=== PATIENT | male | born 1960 | race Caucasian/White ===

== ENCOUNTER 2019-10-04 15:31 | Emergency (ER) | payer OTHER, SELFPAY ==
--- NOTE | ~2019-10-04 | CT_ITS ---
EXAMINATION: CTA chest PE protocol DATE: 10/04/2019 18:39 CDT INDICATION: Chest pain. Shortness of breath. TECHNIQUE: Computed tomographic angiography (CTA) of the chest was performed with 100 mL Omnipaque-35 0 intravenous contrast. The dose-length product was 608.54 mGy-cm. Maximum intensity projection 3D-re constructions of the aorta and other arteries were constructed by the technologist on a separate work station. Automated exposure control and iterative reconstruction technique were employed. COMPARISON: Chest dated 10/04/2019 FINDINGS: The study is technically adequate without evidence for pulmonary embolism. No evidence for aortic aneurysm or dissection. Heart size is normal. No pleural or pericardial effusion. No thoracic lymphadenopathy. No endobronchial lesions. No focal airspace consolidation. No pneumothorax. No acute osseous abnormality. IMPRESSION: 1. No evidence for pulmonary embolism. No acute cardiopulmonary disease. Reviewed, dictated and finalized at location A.
--- NOTE | ~2019-10-04 | XR_ITS ---
EXAMINATION: XR chest 2V 10/04/2019 16:07 INDICATION: Chest pain PROCEDURE: 2 view chest COMPARISON: 07/16/2018 FINDINGS: The lungs are clear. The cardiomediastinal silhouette is within normal limits. There are no pleural effusions. There is no pneumothorax suspected. IMPRESSION: 1: NO ACUTE CARDIOPULMONARY DISEASE. Reviewed, dictated and finalized at location A.
--- NOTE | 2019-10-04 15:35 | ECG_ITS ---
Measurements Intervals [place] Rate: 81 P: 46 [place]: 134 QRS: 21 QRSD: 93 T: 39 QT: 358 QTc: 416 Interpretive Statements SINUS RHYTHM CANNOT RULE OUT SEPTAL INFARCT, AGE INDETERMINATE BASELINE ARTIFACT- I, II ABNORMAL ECG Electronically Signed On 10-04-2019 15:57:33 CDT by Pete Adorno D.O.
[2019-10-04 15:50] VITALS: BP 174/112; PULSE 87; RESP 20; O2SAT 96
[2019-10-04 15:58] VITALS: PULSE 82
[2019-10-04 15:59] VITALS: O2SAT 98
[2019-10-04 16:00] LABS: Basophils Percent Auto 0.5 % (0.2-1.2); Eosinophils Absolute Auto 0.2 K/mm3 (0-0.3); Eosinophils Percent Auto 3.2 % (0-4.4); Hematocrit 40.5 % (42.0-52.0); Hemoglobin 13.9 g/dL (14.0-18.0); Immature Granulocyte Absolute 0.03 K/mm3 (0.00-0.031); Immature Granulocyte Percent A 0.5 % (0-0.5); Lymphocytes Absolute Auto 1.76 K/mm3 (0.9-3.2); Lymphocytes Percent Auto 26.8 % (18.3-44.2); Mean Corpuscular HGB Conc 34.3 g/dl (32-36); Mean Corpuscular Hemoglobin 31.3 pg (26-34); Mean Corpuscular Volume 91.2 fl (80-100); Mean Platelet Volume 9.8 fl (7.4-10.4); Monocytes Absolute Auto 0.6 K/mm3 (0.1-0.6); Neutrophils Absolute Auto 3.9 K/mm3 (1.3-6.7); Platelet Count Result 218 k/mm3 (150-375); Red Blood Count 4.44 M/mm3 (4.6-6.20); Red Cell Distribution Width 12.6 % (11.5-14.5); White Blood Count 6.6 K/mm3 (4.5-10.0)
[2019-10-04 16:10] LABS: INR 0.9; Prothrombin Time 12.2 Seconds (11.1-14.7)
[2019-10-04 16:11] LABS: Partial Thromboplastin Time 26.3 SECONDS (22.3-36.8)
[2019-10-04 16:13] LABS: Blood Urea Nitrogen 18 mg/dL (9-20); Calcium 9.2 mg/dL (8.4-10.2); Carbon Dioxide 28 mmol/L (22-30); Chloride 103 mmol/L (98-107); Estimated CRCL calculation 66 ml/min; Estimated Glomerular Filt Rate 57; Glucose 85 mg/dL (75-110); Potassium 4.2 mmol/L (3.4-5.0); Sodium 135 mmol/L (137-145)
[2019-10-04 16:14] LABS: Alanine Aminotransferase 30 U/L (4-50); Albumin Level 4.4 g/dL (3.5-5.1); Alkaline Phosphatase 37 U/L (38-126); Aspartate Amino Transferase 27 U/L (17-59); Bilirubin,Total 0.6 mg/dL (0.2-1.3); Lipase 204 U/L (23-300)
[2019-10-04] MEDS: KETOROLAC 30 MG/ML VIAL (*BKC) IV PUSH (16:14)
[2019-10-04 16:15] LABS: D Dimer < 0.22 ug/mL (<0.48)
[2019-10-04 16:25] LABS: Troponin I < 0.012 ng/mL (0.000-0.034)
--- NOTE | 2019-10-04 16:55 | ED.CHESTPAIN ---
HPI - Chest Pain General Chief Complaint: Chest Pain Stated Complaint: burning in my chest Time Seen by Provider: 10/04/19 15:38 Source: RN notes reviewed History of Present Illness HPI narrative: Patient presents emergency department from home for chest pain. Patient states has been having intermittent left-sided chest pain for the past 1 month. Patient states the pain is around his nipple and he is tender to palpation around his nipple. He states at times pain radiates into his left shoulder. Patient states that pain is worse when he rolls over onto his side when he is sleeping and when he moves his left arm. He denies any known trauma or injury. Denies any fevers or chills shortness of breath cough abdominal pain nausea vomiting. Patient states he is had no previous work-up. Denies any rashes on his chest Related Data Allergies Allergy/AdvReac Type Severity Reaction Status Date / Time Cat Dander Allergy Intermediate RESPIRATORY Uncoded 10/04/19 16:01 Chicken Feathers Allergy Intermediate RESPIRATORY Uncoded 10/04/19 16:01 Review of Systems Review of Systems: Narrative: Gen.: Denies fevers or chills Eyes: Denies eye pain or visual change ENT: Denies congestion Respiratory: Denies shortness of breath or cough CV: Reports chest pain GI: Denies abdominal pain nausea, emesis or diarrhea Musculoskeletal: Denies back pain or muscle pain Neuro: Denies numbness, tingling, weakness or focal weakness Skin: Denies rash Except as documented, all other systems reviewed and negative PMFSH Past Medical History Medical History (Updated 10/04/19 @ 18:53 by Cameron Escobar DO) Patient denies significant medical history Social History Social History (Updated 10/04/19 @ 16:56 by Cameron Escobar DO) Smoking status: Former smoker Gender identity (if verbalized by the patient): Male Exam Narrative: Exam Narrative: APPEARANCE: No acute distress, nontoxic, resting in bed EYES: EOMI HEENT: Normocephalic, atraumatic, OMM RESPIRATORY: No respiratory distress Clear to auscultation bilaterally with no rhonchi wheezing or rales. Chest: Tender palpation over left anterior chest wall just inferior to the nipple there is no erythema or swelling there is no overlying rash pain increased with movement of the left shoulder CARDIOVASCULAR: Regular rate and rhythm without murmurs rubs or gallops. ABDOMINAL: Soft, nontender, nondistended, no rebound or guarding MUSCULOSKELETAl: Moves all extremities. No clubbing, cyanosis or edema. NEURO: Awake and alert. Following commands, speech normal, no focal deficits SKIN:: Warm, dry. No rashes lesions or abrasions PSYCHIATRIC: Normal affect/mood, Course Course Emergency Course: Patient states pain is improved with Toradol Discussed with patient results of workup and diagnosis. Discussed need for follow-up with primary care, proper use of medication, and reasons to return to the emergency department. Patient understands and agrees to current treatment plan Vital Signs Vital signs: Vital Signs Pulse Rate 87 10/04/19 15:50 Respiratory Rate 20 10/04/19 15:50 Blood Pressure 174/112 H 10/04/19 15:50 Pulse Oximetry 96 10/04/19 15:50 Pulse Rate 82 10/04/19 15:58 Respiratory Rate 20 10/04/19 15:50 Blood Pressure 174/112 H 10/04/19 15:50 Pulse Oximetry 98 10/04/19 15:59 MDM - Chest Pain MDM Narrative Medical decision making narrative: Patient's EKGs and labs are without significant high risk changes. Cardiac risk factors reviewed. Patient is felt likely low risk for ACS and reasonable for further risk stratification testing as an outpatient. No pneumonia aneurysm or PE seen on CTA chest patient is felt to be a reasonable candidate for continued evaluation as an outpatient Lab Data Result diagrams: 10/04/19 15:54 10/04/19 15:54 Labs: Lab Results 10/04/19 10/04/19 10/04/19 Range/Units 15:54 15:54 15:54 WBC 6.6 (4.5-10.0) K/mm3 RBC
[2019-10-04 19:07] LABS: Troponin I < 0.012 ng/mL (0.000-0.034)
[2019-10-04 19:19] VITALS: BP 161/100; PULSE 74; RESP 18; O2SAT 98
== END 2019-10-04 19:45 | disposition home or self-care (01) ==
PROVIDERS: Emergency Provider Emergency Medicine; PCP Family Medicine
DX: R07.89 Other chest pain (principal); Z87.891 Personal history of nicotine dependence; R94.31 Abnormal electrocardiogram [ECG] [EKG]
CPT/HCPCS: 36415; 71046; 71275; 80048; 80076; 83690; 84484; 85025; 85380; 85610; 85730; 93005; 96374; 99284; J1885; Q9967

== ENCOUNTER 2020-07-08 14:59 | Outpatient (CLI) | payer OTHER, SELFPAY ==
[2020-07-09 17:37] LABS: SARS-CoV-2 RNA PCR Negative
== END 2020-07-08 15:00 | disposition home or self-care (01) ==
LOC: ANHCOVIDDT 15:01
PROVIDERS: PCP Family Medicine; Visit Provider Nurse Practitioner Family
DX: R51.9 Headache, unspecified (principal); R11.0 Nausea; Z20.822 Contact with and (suspected) exposure to COVID-19
CPT/HCPCS: C9803; U0003; U0005

== ENCOUNTER 2021-02-11 13:58 | Emergency (ER) | payer OTHER, SELFPAY ==
[2021-02-11] VITALS (18 sets, daily range): BP systolic 141–156; BP diastolic 90–108; PULSE 82–119; RESP 12–21; TEMP 37.7; O2SAT 91–97
--- NOTE | ~2021-02-11 | XR_ITS ---
EXAMINATION: XR chest 2V DATE: 02/11/2021 14:36 INDICATION: Shortness of breath and fever TECHNIQUE: PA and lateral views of the chest are obtained. COMPARISON: 10/04/2019 FINDINGS: There are patchy opacities of the mid and lower lung zones with a more focal airspace opaci ty seen in the right lung base. There is no pleural effusion or pneumothorax. The cardiomediastinal s ilhouette is normal. There is mild thoracic spondylosis. IMPRESSION: 1. Patchy opacities of the mid and lower lung zone and more focal airspace opacity of the right lung base could be infectious/inflammatory. Recommend followup radiographs in 10-14 days after appropriate therapy to evaluate for improvement/resolution. Reviewed, dictated and finalized at location B. IMPRESSION: 1. Patchy opacities of the mid and lower lung zone and more focal airspace opac ity of the right lung base could be infectious/inflammatory. Recommend followup radiographs in 10-14 days after appropriate therapy to evaluate for improvemen t/resolution.
--- NOTE | 2021-02-11 14:21 | ECG_ITS ---
Measurements Intervals [place] Rate: 91 P: 14 OR: 116 QRS: 11 QRSD: 82 T: 48 QT: 316 QTc: 389 Interpretive Statements SINUS RHYTHM WITH SHORT OR INTERVAL BORDERLINE ECG Electronically Signed On 02-11-2021 15:52:11 CDT by Pete Adorno D.O.
--- NOTE | 2021-02-11 14:29 | ED.GENADULT ---
HPI - General Adult General Chief complaint: Weakness Stated complaint: Multiple C/O I think I have COVID Time Seen by Provider: 02/11/21 14:02 Source: patient History of Present Illness HPI narrative: Patient is a 60 y/o male complaining cough, chest discomfort, vomiting and bodyache for 1 week. He states that he coughs up some white phlegm at times. His doctor called in steroids and Z-pack, which has not helped with his symptoms. He also feels sweaty and hot, but did not check his temp. Related Data Allergies Allergy/AdvReac Type Severity Reaction Status Date / Time Cat Dander Allergy Intermediate RESPIRATORY Uncoded 10/04/19 16:01 Chicken Feathers Allergy Intermediate RESPIRATORY Uncoded 10/04/19 16:01 Review of Systems Constitutional: Constitutional: Reports as per HPI, Denies chills, Reports excessive sweating, Denies fever(s), Denies headache(s), Reports lethargy, Reports malaise and Denies weakness Eyes: Eyes: Denies blurry vision ENT: Denies headache(s) and Denies neck pain Cardiovascular: Cardiovascular: Reports chest pain and Reports dyspnea Respiratory: Respiratory: Reports cough and Reports dyspnea Gastrointestinal: Gastrointestinal: Denies abdominal pain, Denies diarrhea, Denies nausea and Denies vomiting Genitourinary: Genitourinary: Denies hematuria and Denies dysuria Musculoskeletal: Musculoskeletal: Denies back pain, Reports myalgias and Denies neck pain Neurologic: Denies headache(s) and Denies weakness PMFSH Past Medical History Medical History Patient denies significant medical history Social History Social History Smoking status: Former smoker Gender identity (if verbalized by the patient): Male Exam Const: General: no acute distress and well developed Orientation/consciousness: oriented to person, oriented to place, oriented to time and patient oriented x3 HENMT: Head: normocephalic Ears: external ears normal General nose exam: Normal external nose present Eyes: General: appearance normal, both eyes and all related structures Conjunctivae: conjunctivae normal Neck: Neck: normal visual inspection and full ROM Chest: Chest palpation & inspection: normal inspection of the chest and no tenderness Resp: Effort & Inspection: normal respiratory effort Auscultation: clear to auscultation bilaterally Cardio: Rate: regular rate Rhythm: regular rhythm GI: GI Palp: No abdominal tenderness and Yes Soft to palpation Skin: General skin exam: normal color and turgor normal Neuro: General: oriented to person, oriented to place, oriented to time and patient oriented x3 Cognition (Neuro): normal cognition Extrem: General: normal to inspection, full ROM and no pedal edema Psych: Appearance: grossly normal Mental Status: mental status grossly normal Affect: normal affect Course Vital Signs Vital signs: Vital Signs Pulse Rate 100 02/11/21 14:07 Respiratory Rate 17 02/11/21 14:07 Blood Pressure 152/100 H 02/11/21 14:07 Pulse Oximetry 95 02/11/21 14:07 Temperature 37.7 C H 02/11/21 14:52 Pulse Rate 83 02/11/21 18:25 Respiratory Rate 16 02/11/21 18:25 Blood Pressure 156/90 H 02/11/21 18:25 Pulse Oximetry 97 02/11/21 18:25 Medical Decision Making Vital Signs Vital Signs: Vital Signs Pulse Rate 100 02/11/21 14:07 Respiratory Rate 17 02/11/21 14:07 Blood Pressure 152/100 H 02/11/21 14:07 Pulse Oximetry 95 02/11/21 14:07 Temperature 37.7 C H 02/11/21 14:52 Pulse Rate 83 02/11/21 18:25 Respiratory Rate 16 02/11/21 18:25 Blood Pressure 156/90 H 02/11/21 18:25 Pulse Oximetry 97 02/11/21 18:25 Lab Data Result diagrams: 02/11/21 14:26 02/11/21 14:26 Labs: Lab Results 02/11/21 02/11/21 02/11/21 Range/Units 14:26 14:26 16:09 WBC 7.1 (4.5-10.0) K/mm3 RBC 5.01 (4.6-6.20) M
[2021-02-11 14:37] LABS: Basophils Percent Auto 0.4 % (0.2-1.2); Hematocrit 44.4 % (42.0-52.0); Hemoglobin 15.6 g/dL (14.0-18.0); Immature Granulocyte Absolute 0.12 K/mm3 (0.00-0.031); Immature Granulocyte Percent A 1.7 % (0-0.5); Lymphocytes Absolute Auto 0.97 K/mm3 (0.9-3.2); Lymphocytes Percent Auto 13.7 % (18.3-44.2); Mean Corpuscular HGB Conc 35.1 g/dl (32-36); Mean Corpuscular Hemoglobin 31.1 pg (26-34); Mean Corpuscular Volume 88.6 fl (80-100); Mean Platelet Volume 9.7 fl (7.4-10.4); Monocytes Absolute Auto 0.6 K/mm3 (0.1-0.6); Monocytes Percent Auto 7.7 % (2.6-8.5); Neutrophils Absolute Auto 5.4 K/mm3 (1.3-6.7); Neutrophils Percent Auto 76.5 % (45.5-73.1); Platelet Count Result 228 k/mm3 (150-375); Red Blood Count 5.01 M/mm3 (4.6-6.20); Red Cell Distribution Width 12.1 % (11.5-14.5); White Blood Count 7.1 K/mm3 (4.5-10.0)
[2021-02-11 14:45] LABS: Alanine Aminotransferase 29 U/L (4-50); Albumin Level 4.6 g/dL (3.5-5.1); Alkaline Phosphatase 45 U/L (38-126); Anion Gap 9 mmol/L (8-16); Aspartate Amino Transferase 49 U/L (17-59); Bilirubin,Total 0.6 mg/dL (0.2-1.3); Blood Urea Nitrogen 18 mg/dL (9-20); Calcium 9.4 mg/dL (8.4-10.2); Carbon Dioxide 24 mmol/L (22-30); Chloride 97 mmol/L (98-107); Estimated CRCL calculation 94 ml/min; Estimated Glomerular Filt Rate > 60; Glucose 102 mg/dL (65-110); Potassium 4.7 mmol/L (3.4-5.0); Sodium 130 mmol/L (137-145)
[2021-02-11 14:56] LABS: Troponin I < 0.012 ng/mL (0.000-0.034)
--- NOTE | 2021-02-11 16:14 | PC.NURSE ---
Rapid COVID sent to lab. Called lab to inform.
[2021-02-11 16:46] LABS: EDCOVIDSCREEN Positive (Negative)
[2021-02-11] MEDS: SODIUM CHLORIDE 0.9% IV 1,000 ML 999 ML IV CONT (17:42)
[2021-02-11 17:55] LABS: Troponin I < 0.012 ng/mL (0.000-0.034)
== END 2021-02-11 18:26 | disposition home or self-care (01) ==
PROVIDERS: Emergency Provider Emergency Medicine; PCP Family Medicine
DX: U07.1 COVID-19 (principal); Z87.891 Personal history of nicotine dependence; R94.31 Abnormal electrocardiogram [ECG] [EKG]; R91.8 Other nonspecific abnormal finding of lung field
CPT/HCPCS: 36415; 71046; 80053; 84484; 85025; 87426; 93005; 96360; 99284; C9803; J7030

== ENCOUNTER 2021-02-18 11:28 | Emergency (ER) | payer OTHER, SELFPAY ==
[2021-02-18 11:40] VITALS: BP 152/105; PULSE 81; RESP 20; TEMP 36.2; O2SAT 96
--- NOTE | 2021-02-18 13:45 | ED.GENADULT ---
HPI - General Adult General Chief complaint: Skin/Abscess/Foreign Body Stated complaint: RASH ON BACK Time Seen by Provider: 02/18/21 11:50 Source: patient Mode of arrival: ambulatory Limitations: no limitations History of Present Illness HPI narrative: Patient presents with chief complaint of a rash noted to his back over the past 4 days. Patient was diagnosed on 02-11-21 with Covid. Patient states that he has been laying around a lot on his back but wanted to make sure that he did not have shingles as his [id number] was diagnosed.He states the rash is not painful but pruritic. He reports that he has had a cough fatigue. He denies chest pain or shortness of breath. Patient states that the cough is very irritating. He denies any other symptoms or concerns. Related Data Allergies Allergy/AdvReac Type Severity Reaction Status Date / Time Cat Dander Allergy Intermediate RESPIRATORY Uncoded 02/18/21 11:54 Chicken Feathers Allergy Intermediate RESPIRATORY Uncoded 02/18/21 11:54 Review of Systems Review of Systems: CONSTITUTIONAL: Denies fever, chills, or sweats. EYES: Denies visual changes, redness, or discharge. ENT: Denies rhinorrhea, congestion, sore throat, or otalgia. CARDIOVASCULAR: Denies chest pain, palpitations, or edema. RESPIRATORY: Reports cough denies dyspnea. GASTROINTESTINAL: Denies abdominal pain, nausea, vomiting, or diarrhea. GENITOURINARY: Denies dysuria or hematuria. SKIN: Reports rash denies itching. MUSCULOSKELETAL: Denies back pain, joint pain, or myalgia. NEUROLOGIC: Denies headache, numbness, dizziness, or weakness. PSYCHIATRIC: Denies anxiety or depression. PMFSH Past Medical History Medical History Patient denies significant medical history Social History Social History Smoking status: Former smoker Gender identity (if verbalized by the patient): Male Exam Narrative: GENERAL: Well-appearing, well-nourished, and in no acute distress. HEAD: Normocephalic, atraumatic. EYES: PERRLA and EOMI. NECK: Supple. No adenopathy or masses. Range of motion intact. CHEST: Clear to auscultation. No respiratory distress. No wheezes rales or rhonchi HEART: Regular rate and rhythm. EXTREMITIES: Normal range of motion. No edema. SKIN: There is a mild maculopapular rash on patient's back. Does not follow a dermatomal distribution is not shingles appearing. No signs of infection.warm, dry, no rash. NEURO: No focal deficits. Alert and oriented x3. PSYCH: Normal mood and affect. Course Vital Signs Vital signs: Vital Signs Temperature 97.2 F L 02/18/21 11:40 Pulse Rate 81 02/18/21 11:40 Respiratory Rate 20 02/18/21 11:40 Blood Pressure 152/105 H 02/18/21 11:40 Pulse Oximetry 96 02/18/21 11:40 Temperature 97.2 F L 02/18/21 11:40 Pulse Rate 81 02/18/21 11:40 Respiratory Rate 20 02/18/21 11:40 Blood Pressure 152/105 H 02/18/21 11:40 Pulse Oximetry 96 02/18/21 11:40 Medical Decision Making Vital Signs Vital Signs: Vital Signs Temperature 97.2 F L 02/18/21 11:40 Pulse Rate 81 02/18/21 11:40 Respiratory Rate 20 02/18/21 11:40 Blood Pressure 152/105 H 02/18/21 11:40 Pulse Oximetry 96 02/18/21 11:40 Temperature 97.2 F L 02/18/21 11:40 Pulse Rate 81 02/18/21 11:40 Respiratory Rate 20 02/18/21 11:40 Blood Pressure 152/105 H 02/18/21 11:40 Pulse Oximetry 96 02/18/21 11:40 Discharge Plan Discharge Clinical Impression: COVID-19 virus infection Patient Disposition: Home, Self-Care Condition: Stable Instructions: Antibiotic Form, COVID-19 (Coronavirus Disease 2019) (ED) Additional Instructions: Quarantine as instructed by the health department. You are generally considered contagious for 10 days as long as you are symptoms are improving and you are not febrile. Take Tessalon Perles as directed for cough. Your rash appears
[2021-02-18 14:00] VITALS: BP 155/94; PULSE 80; RESP 20; TEMP 36.3; O2SAT 97
== END 2021-02-18 14:18 | disposition home or self-care (01) ==
PROVIDERS: Emergency Provider Emergency Medicine; PCP Family Medicine
DX: U07.1 COVID-19 (principal); Z87.891 Personal history of nicotine dependence
CPT/HCPCS: 99283

== ENCOUNTER 2021-03-09 15:26 | Outpatient (CLI) | payer OTHER, SELFPAY ==
--- NOTE | ~2021-03-09 | XR_ITS ---
XR chest 2V DATE: 03/09/2021 15:45 INDICATION: Cough TECHNIQUE: PA and lateral views COMPARISON: 02/21/2021 2 view chest 10/03/[address] pulmonary scan FINDINGS: There are scattered patchy infiltrates in the left and right mid and lower lung zones, not present on 10/04/2019, relatively unchanged since 02/21/2021. Normal heart size. No hilar or mediastinal enlargement. No pleural effusion or pulmonary vascular con gestion or pneumothorax. IMPRESSION: Persistent scattered patchy bilateral mild mid and lower lung zone infiltrates Reviewed, dictated and finalized at location A.
== END 2021-03-09 15:27 | disposition home or self-care (01) ==
PROVIDERS: PCP Family Medicine; Visit Provider Family Medicine
DX: U07.1 COVID-19 (principal); J40 Bronchitis, not specified as acute or chronic
CPT/HCPCS: 71046

== ENCOUNTER 2022-04-24 14:19 | Observation (INO) | payer OTHER, SELFPAY ==
[2022-04-24] VITALS (35 sets, daily range): BP systolic 162–205; BP diastolic 83–111; PULSE 66–85; RESP 10–20; TEMP 36.6; O2SAT 94–100; BMI 35.4
--- NOTE | ~2022-04-24 | MR_ITS ---
EXAMINATION: MR thoracic spine wo/w con DATE: 04/25/2022 12:50 INDICATION: Pain and tingling in the arms. TECHNIQUE: Magnetic resonance imaging (MRI) of the thoracic spine was performed without and with 20 m L MultiHance intravenous contrast. COMPARISON: None FINDINGS: There is 15 degrees levoscoliosis of cervicothoracic spine. Vertebral body heights and inte rvertebral disc heights are normal. There is multilevel mild facet joint osteoarthritis. At T8-T9, th ere is a left central protrusion. No central canal stenosis. There is mild left neural foraminal sten osis at T11-T12. The spinal cord signal intensity is normal and thoracic spine. IMPRESSION: 1. Mild thoracic spondylosis. 2. Cervicothoracic levoscoliosis. Reviewed, dictated and finalized at location A. RIAL HANDLING SUPERVISOR
--- NOTE | ~2022-04-24 | CT_ITS ---
EXAMINATION: CT brain wo con DATE: 04/24/2022 17:32 INDICATION: paresthesias, hypertension . TECHNIQUE: Computed tomography (CT) of the head was performed without intravenous contrast. The mA wa s adjusted according to patient size. Iterative reconstruction technique was employed. The dose-lengt h product was 605.33 mGy-cm. COMPARISON: None FINDINGS: No acute intracranial hemorrhage or extra-axial fluid collection. No hydrocephalus, mass, or herniation. No acute ischemic infarct. Unremarkable dural venous sinus attenuation. No acute osseous abnormality. The aerated spaces are clear. Mild atrophy and moderate chronic white matter change. Mild atherosclerotic intracranial calcificatio n. IMPRESSION: No acute intracranial process. Reviewed, dictated and finalized at location K. FIC SIGNAL REPAIRER
--- NOTE | ~2022-04-24 | XR_ITS ---
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 RESULT: Lines, tubes, and devices: None. Lungs and pleura: Clear. Chronic left posterior costophrenic angle blunting. Cardiomediastinal silhouette: Stable. Other: No acute osseous or upper abdominal finding. IMPRESSION: No acute cardiopulmonary process. Reviewed, dictated and finalized at location K. E CRUSHER OPERATOR
--- NOTE | ~2022-04-24 | MR_ITS ---
EXAMINATION: MR cervical spine wo/w con DATE: 04/25/2022 12:50 INDICATION: Pain and tingling in the arms. TECHNIQUE: Magnetic resonance imaging (MRI) of the cervical spine was performed without and with 20 m L MultiHance intravenous contrast. COMPARISON: None FINDINGS: There is 14 degrees levoscoliosis of cervicothoracic spine. There is kyphosis of cervical s pine. Vertebral body heights are normal. There is mildly decreased disc height at C4-C5 and C6-C7. At C4-C5. There is increased T2-weighted signal intensity in the spinal cord, consistent with myelomala edilson. The following disc levels are specifically discussed: C2-C3: The disc does not extend beyond the endplate margin. There is mild right and moderate left unc overtebral joint osteoarthritis. There is mild bilateral facet joint osteoarthritis. There is mild le ft neural foraminal stenosis. There is no central canal stenosis. C3-C4: The disc is bulging. There is mild bilateral uncovertebral joint osteoarthritis. There is lilia re right and mild left facet joint osteoarthritis. There is moderate right neural foraminal stenosis. There is mild central canal stenosis. C4-C5: The disc is bulging with superimposed right central extrusion. There is severe bilateral uncov ertebral joint osteoarthritis. There is mild bilateral facet joint osteoarthritis. There is moderate bilateral neural foraminal stenosis. There is severe central canal stenosis with ventral and dorsal i ndentation of the spinal cord. C5-C6: The disc is bulging with superimposed central extrusion. There is severe bilateral uncovertebr al joint osteoarthritis. There is mild right facet joint osteoarthritis. There is mild bilateral neur al foraminal stenosis. There is moderate central canal stenosis with ventral and dorsal indentation o f the spinal cord. C6-C7: There is a left central and foraminal zone extrusion. There is severe bilateral uncovertebral joint osteoarthritis. There is no facet joint osteoarthritis. There is mild right and moderate left n eural foraminal stenosis. There is mild central canal stenosis with ventral indentation of the spinal cord. C7-T1: The disc does not extend beyond the endplate margin. There is no uncovertebral joint osteoarth ritis. There is severe right and moderate left facet joint osteoarthritis. There is mild right neural foraminal stenosis. There is no central canal stenosis. IMPRESSION: 1. Myelomalacia at C4-C5. 2. Severe cervical spondylosis. 3. Cervicothoracic levoscoliosis. Reviewed, dictated and finalized at location A. RAL JAVA DEVELOPER
--- NOTE | ~2022-04-24 | CT_ITS ---
EXAMINATION: CT cervical spine wo con DATE: 04/24/2022 19:33 INDICATION: numbness and tingling TECHNIQUE: Computed tomography (CT) of the cervical spine was performed without intravenous contrast. Automated exposure control and iterative reconstruction technique were employed. The dose-length pro duct was 441.01 mGy-cm. COMPARISON: None FINDINGS: Vertebral Body Alignment: Intact. Reversed lordosis, centered at C5 Craniocervical and atlantoaxial alignment: Mild degenerative change at the atlantodental interval. Pr ominent posterior arch of C1, with moderate degenerative changes between it and the spinous process o f C2. Alignment intact. Osseous structures/fracture: No evidence of a lytic or blastic process in the visualized spine. No e vidence of acute fracture. Partial opacification of left mastoid air cells. Cervical soft tissues: The paraspinal soft tissues planes are maintained. Degenerative changes: Multilevel severe degenerative disc disease in the mid and lower cervical spine . Multilevel severe central canal narrowing. Multilevel severe bilateral neural foraminal narrowing. Multilevel facet arthropathy. IMPRESSION: No acute fracture or traumatic malalignment in the cervical spine. Multilevel severe bilateral neural foraminal narrowing and central canal narrowing secondary to degenerative changes. Left mastoid effu jordan. Reviewed, dictated and finalized at location K. ROLL CATCHER IMPRESSION: No acute fracture or traumatic malalignment in the cervical spine. Multilevel s evere bilateral neural foraminal narrowing and central canal narrowing secondar y to degenerative changes. Left mastoid effusion.
--- NOTE | ~2022-04-24 | MR_ITS ---
EXAMINATION: MR brain/brain stem wo/w con DATE: 04/25/2022 12:51 INDICATION: Numbness to face and arm. TECHNIQUE: Magnetic resonance imaging (MRI) of the brain and brainstem was performed without and with 20 mL MultiHance intravenous contrast. COMPARISON: Head CT 04/24/2022 FINDINGS: There are scattered areas of nonspecific increased T2-weighted signal intensity in the cere bral white matter and jacobo. There is no intracranial hemorrhage, acute infarction, or abnormal intrac ranial mass lesion. The ventricles are normal in size. The cisternal segments of the trigeminal nerve s are normal. No vascular loop compression. There is mild mucosal thickening in the ethmoid sinuses. The orbits are normal. There is a left mastoid effusion. IMPRESSION: 1. Moderate nonspecific cerebral white matter disease and pontine disease, which likely represents ch ronic small vessel ischemic disease. Reviewed, dictated and finalized at location A. OCOPIER TECHNICIAN IMPRESSION: 1. Moderate nonspecific cerebral white matter disease and pontine disease, whic h likely represents chronic small vessel ischemic disease.
--- NOTE | 2022-04-24 14:20 | ECG_ITS ---
Measurements Intervals [place] Rate: 73 P: -53 MS: 123 QRS: -59 QRSD: 91 T: 210 QT: 355 QTc: 393 Interpretive Statements SINUS OR ECTOPIC ATRIAL RHYTHM ANTEROSEPTAL INFARCT, AGE INDETERMINATE INFERIOR INFARCT, AGE INDETERMINATE BORDERLINE ST-T WAVE ABNORMALITY- HIGH LATERAL LEADS ABNORMAL ECG COMPARED TO ECG 02/11/2021 14:49:00 MYOCARDIAL INFARCT FINDING NOW PRESENT Electronically Signed On 04-24-2022 17:03:20 [employer]URE [employer]AMES INSPECTOR by Pete Adorno D.O.
[2022-04-24 14:57] LABS: Basophils Absolute Auto 0.1 K/mm3 (0.0-0.1); Basophils Percent Auto 0.8 % (0.2-1.2); Eosinophils Absolute Auto 0.1 K/mm3 (0-0.3); Eosinophils Percent Auto 2.3 % (0-4.4); Hematocrit 40.7 % (42.0-52.0); Immature Granulocyte Absolute 0.02 K/mm3 (0.00-0.031); Immature Granulocyte Percent A 0.3 % (0-0.5); Lymphocytes Absolute Auto 1.63 K/mm3 (0.9-3.2); Lymphocytes Percent Auto 27.3 % (18.3-44.2); Mean Corpuscular HGB Conc 34.4 g/dl (32-36); Mean Corpuscular Hemoglobin 31.5 pg (26-34); Mean Corpuscular Volume 91.5 fl (80-100); Mean Platelet Volume 10.2 fl (7.4-10.4); Monocytes Absolute Auto 0.5 K/mm3 (0.1-0.6); Monocytes Percent Auto 8.1 % (2.6-8.5); Neutrophils Absolute Auto 3.6 K/mm3 (1.3-6.7); Neutrophils Percent Auto 61.2 % (45.5-73.1); Platelet Count Result 226 k/mm3 (150-375); Red Blood Count 4.45 M/mm3 (4.6-6.20); Red Cell Distribution Width 12.3 % (11.5-14.5)
[2022-04-24 15:10] LABS: Alanine Aminotransferase 28 U/L (6-50); Albumin Level 4.6 g/dL (3.5-5.1); Alkaline Phosphatase 44 U/L (38-126); Anion Gap 9 mmol/L (8-16); Aspartate Amino Transferase 26 U/L (17-59); Bilirubin,Total 0.7 mg/dL (0.2-1.3); Blood Urea Nitrogen 15 mg/dL (9-20); Carbon Dioxide 24 mmol/L (22-30); Chloride 105 mmol/L (98-107); Estimated CRCL calculation 94 ml/min; Estimated Glomerular Filt Rate > 60; Glucose 109 mg/dL (65-110); Lipase 83 U/L (23-300); Potassium 4.3 mmol/L (3.4-5.0); Sodium 138 mmol/L (137-145)
[2022-04-24 15:20] LABS: Troponin I < 0.012 ng/mL (0.000-0.034)
[2022-04-24 15:25] LABS: Partial Thromboplastin Time 26.5 SECONDS (22.3-36.8)
[2022-04-24 15:34] LABS: INR 1.1; Prothrombin Time 13.8 Seconds (11.1-14.7)
--- NOTE | 2022-04-24 15:55 | ED.CHESTPAIN ---
HPI - Chest Pain General Chief Complaint: Chest Pain <NELY Villa Last Filed: 04/24/22 18:48> Stated Complaint: chest pain <NELY Villa Last Filed: 04/24/22 18:48> Time Seen by Provider: 04/24/22 15:15 <NELY Villa Last Filed: 04/24/22 18:48> Source: patient <NELY Villa Last Filed: 04/24/22 18:48> Mode of arrival: ambulatory <NELY Villa Last Filed: 04/24/22 18:48> Limitations: no limitations <NELY Villa Last Filed: 04/24/22 18:48> History of Present Illness HPI narrative: This is a 61 year old male that presents to the ER for cold symptoms ongoing over the last couple of weeks. Reports cough, congestion, chest tightness. Reports he has been using his inhaler with little relief. Reports tingling in his chest. Reports some shortness of breath. Denies fever or lower extremity edema. <NELY Villa Last Filed: 04/24/22 18:48> Related Data Home Medications: Home Medications Medication Instructions Recorded Confirmed acetaminophen 500 mg tablet 1,000 mg PO Q6H PRN Mild Pain 04/24/22 04/24/22 (Tylenol Extra Strength) (Scale Score 1-4) albuterol sulfate 90 mcg/actuation 2 puff inhalation Q4-6H PRN 04/24/22 04/24/22 aerosol inhaler Shortness Of Breath budesonide 160 mcg-glycopyr 9 2 inh inhalation BID 04/24/22 04/24/22 mcg-formot 4.8 mcg/actuation HFA inhaler (Breztri Aerosphere) <NELY Villa Last Filed: 04/24/22 18:48> Allergies/Adverse Reactions: Allergies Allergy/AdvReac Type Severity Reaction Status Date / Time Cat Dander Allergy Intermediate RESPIRATORY Uncoded 02/18/21 11:54 Chicken Feathers Allergy Intermediate RESPIRATORY Uncoded 02/18/21 11:54 <NELY Villa Filed: 04/24/22 18:48> Review of Systems Review of Systems: CONSTITUTIONAL: Denies fever ENT: Reports congestion CARDIOVASCULAR: Reports chest pain. Denies edema. RESPIRATORY: Reports cough and dyspnea. <Myranda Donahue PA-C - Last Filed: 04/24/22 18:48> All systems reviewed & are unremarkable except as noted in HPI and below <Myranda Donahue PA-C - Last Filed: 04/24/22 18:48> [facility] Past Medical History Medical History: Medical History (Updated 04/24/22 @ 20:46 by Steph Patricia NP) COVID-19 virus infection Obesity Sciatica <Myranda Donahue PA-C - Last Filed: 04/24/22 18:48> Surgical History Surgical History: Surgical History No pertinent past surgical history <Myranda Donahue PA-C - Last Filed: 04/24/22 18:48> Family History Family History: Family History Father Hypertension Mother Dementia <Myranda Donahue PA-C - Last Filed: 04/24/22 18:48> Social History Social History: Social History (Updated 04/24/22 @ 20:38 by Steph Patricia NP) Social History: The patient lives home alone and is . 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 Patient stated he had been drinking heavily for while but has not drank any alcohol in 1 week. He is a former smoker. He does not use any illicit drugs. He does not have anybody that is a durable power family law attorney for healthcare. -code status full code Smoking packs per day: 2 Smoking cigarettes per day: 40.0 Years smoked: 30 Smoking pack-years: 60.00 Smoking status: Former smoker Tobacco type: cigarettes Alcohol intake: current Drinks per week: 18 Substance use: current Substance use type: marijuana Last use: 04/23/22 Lack of Transportation: No Lack of Food: Never True Current Housing: I Do Not Have Housing Concerned About Future Housing: No Difficulty Paying Gas/Electric Bills: No Difficulty Paying for Meds: No Currently Unemployed: No Education: Grade School Difficulty w/ Childcare or Family Care: No Gender identity (i
[2022-04-24] MEDS: ALBUTEROL SULFATE NEB 2.5 MG/3 ML INH 5 MG INHALATION (16:07)
[2022-04-24] MEDS: IPRATROPIUM BR 0.02% INH SOLN 0.5 MG/2.5 ML VIAL INHALATION (16:07)
[2022-04-24 16:35] LABS: Influenza A QL RT-PCR Negative (Negative); Influenza B QL RT-PCR Negative (Negative); RSV RNA, RT-PCR Negative (Negative); SARS-CoV-2 RNA PCR Negative
[2022-04-24 18:10] LABS: Troponin I < 0.012 ng/mL (0.000-0.034)
[2022-04-24] MEDS: hydrALAZINE HCL 20 MG/ML VIAL 10 MG IV PUSH ×2 (18:11→22:41)
--- NOTE | 2022-04-24 19:05 | PM.IMHP ---
H&P: HPI History of Present Illness Date/Time: 04/24/22 19:05 Chief Complaint: Chest pain Narrative: This is a 61-year-old male patient who has multiple complaints. The patient complains of neck pain and pain to the left side of his face the radiates into his ear down to the left side. Down to his left arm. He has pain across his chest. He has numbness and tingling around his chest on both sides and his left arm. He also has numbness and tingling to his lips. The patient recently was treated for upper respiratory infection with azithromycin and an inhaler. He has had shortness of breath and chest discomfort. The patient denies taking anything [id number] for this discomfort. He denies taking any NSAIDs or any cold medicine. Cervical spine CT was read as no acute fracture traumatic malalignment in the cervical spine multilevel severe bilateral neural foraminal narrowing and central canal narrowing secondary to degenerative changes left mastoid effusion. Head CT shows no acute intracranial process. Chest x-ray shows no acute cardiopulmonary disease. The patient was given a nebulizer treatment and Apresoline in the emergency room. His blood pressure was 197/111 he was given the hydralazine and is blood pressure came down to 174/96 and then increased again so I ordered Lopressor 5 mg IV push x1. It looks like he has had elevated blood pressure in the past with visits here as far back as 2019. Patient's troponins are negative x2. Influenza a B RSV and COVID are all negative. The patient is being admitted to observation status on the date of service of 04/24/2022. Review of Systems Review of Systems: See HPI All systems reviewed & are unremarkable except as noted in HPI and below Constitutional: Constitutional: Reports as per HPI and Reports no additional constitutional complaints Eyes: Eyes: Reports as per HPI and Reports no additional eye complaints ENT: Reports system reviewed and no additional complaints, except as documented and Reports Normal hearing present Cardiovascular: Cardiovascular: Reports no additional cardiovascular complaints Respiratory: Respiratory: Reports no additional respiratory complaints and Reports no additional respiratory complaints Gastrointestinal: Gastrointestinal: Reports as per HPI and Reports no additional gastrointestinal complaints Musculoskeletal: Musculoskeletal: Reports no additional musculoskeletal complaints Integumentary/Breasts: Skin/Breast: Reports system reviewed and no additional complaints, except as docu and Reports as per HPI Neurologic: Reports system reviewed and no additional complaints, except as documented, Reports as per HPI and Reports Normal hearing present Psychiatric: Psychiatric: Reports no additional psychiatric complaints and Reports as per HPI Endocrine: Endocrine: Reports no additional endocrine complaints Hematologic/Lymphatic: Hematologic/Lymphatic: Reports no additional hematologic/lymphatic complaints Allergic/Immunologic: Allergic/Immunologic: Reports no additional allergic/immunologic complaints PMFSH Past Medical History Medical History (Updated 04/24/22 @ 21:02 by Steph Patricia NP) COVID-19 virus infection Obesity Sciatica Surgical History Surgical History No pertinent past surgical history Family History Family History Father Hypertension Mother Dementia Social History Social History (Updated 04/24/22 @ 20:38 by Steph Patricia NP) Social History: The patient lives home alone and is . 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 Patient stated he had been drinking heavily for while but has not drank any alcohol in 1 week. He is a former smoker. He does not use any illicit drugs. He does not have anybody that is a durable power business attorney for healthcare. -code status full code Smoking
--- NOTE | 2022-04-24 19:17 | PC.NURSE ---
pt states is feeling some better. states fells less numbness on the left side of his face.
--- NOTE | 2022-04-24 19:45 | ADMGEN ---
This patient, Robert Tafoya, was admitted to IMU Room 212-01. Patient/family oriented to hospital policies and general routines including ID bracelet, bed and alarms, visiting hours, pain management, procedures, bathroom and other care routines, personal items, smoking policy, room service/diet, and visiting hours. Information on how to activate the Rapid Response Team has been discussed. Patient/Family are encouraged to report perceived risks to care and to ask questions if they do not understand what they are told or what they should do.
--- NOTE | 2022-04-24 19:55 | PC.NURSE ---
Pt reports taking 3 puffs of albuterol inhaler on arrival to his room in IMU. Pt educated on not taking any medication outside of what is provided in the hospital while admitted in the hospital. Will continue to monitor.
[2022-04-24] MEDS: METOPROLOL TARTRATE INJ 5 MG/5 ML VIAL IV PUSH (20:12)
[2022-04-24 20:57] LABS: Troponin I < 0.012 ng/mL (0.000-0.034)
[2022-04-24] MEDS: METOPROLOL TARTRATE 25 MG TABLET PO (22:42)
[2022-04-25] VITALS (12 sets, daily range): BP systolic 115–162; BP diastolic 67–90; PULSE 58–75; RESP 18–20; TEMP 36.3–37.1; O2SAT 97–100
--- NOTE | 2022-04-25 | ECHO_ITS ---
Patient Info Name: Robert Taofya Age: 61 years : 1960 Gender: Male Ht: 69 in Wt: 238 lbs BSA: 2.33 m2 HR: 61 bpm BP: 162 / 90 mmHg Heart Rhythm: Sinus Rhythm Technical Quality: Fair Exam Date: 04/25/2022 8:18 AM Exam Location: [facility] Patient Status: Outpatient Admit Date: 04/24/2022 Staff Ordering Physician: Steph Patricia NP Lead Process Engineer: Ngoc Montero RDCS Attending Provider: Peng Roman MD Referring Physician: Harshad ANTONIO; Exam Type: CA echo doppler color flow Study Info Indications R07.9 - Chest pain, unspecified Complete two-dimensional, color flow and Doppler transthoracic echocardiogram is performed. Summary 1. Complete two-dimensional, color flow and Doppler transthoracic echocardiogram is performed. 2. Normal left ventricular size and systolic function without ischemic wall motion abnormality. 3. No Doppler evidence of valvular disease. Left Ventricle Left ventricular chamber dimension is normal. Left ventricular systolic function is normal, estimated at 65-70%. The left ventricular diastolic function is normal. Right Ventricle Right ventricular chamber dimension is normal. Left Atria Left atrial chamber dimension is normal. Right Atria Right atrial chamber dimension is normal. Aortic Valve The aortic valve is normal. Pulmonic Valve The pulmonic valve is normal. Mitral Valve The mitral valve has normal leaflets. Tricuspid Valve The tricuspid valve leaflets are normal. Pericardium/Pleural The pericardium appears normal. Aorta The aortic root size at the sinus of Valsalva is normal. Left Ventricular Outflow Tract Name Value Normal LVOT 2D LVOT Diameter 2.0 cm LVOT Doppler LVOT Peak Gradient 5 mmHg LVOT Mean Gradient 3 mmHg LVOT VTI 22 cm LVOT VTI/AV VTI Ratio 0.5 LVOT Stroke Volume 69 ml LVOT CO 4.9 l/min LVOT CI 2.1 l/min/m2 Pulmonic Valve Name Value Normal RVOT Doppler RVOT Peak Gradient 4 mmHg PV Doppler PV Peak Gradient 9 mmHg Mitral Valve Name Value Normal MV Doppler MV Decel [place] 681 cm/s2 MV PHT 58 ms MV Area (PHT) 3.8 cm2 4.0-5.0 MV Diastolic Function
[2022-04-25] MEDS: AMPICILLIN SULB 3 GM/NS 100 ML 3 GM/100 ML VIAL IVPB ×2 (00:58→04:18)
[2022-04-25] MEDS: ACETAMINOPHEN 500 MG TABLET 1000 MG PO ×3 (01:24→15:44)
[2022-04-25 04:37] LABS: Basophils Percent Auto 0.6 % (0.2-1.2); Eosinophils Absolute Auto 0.2 K/mm3 (0-0.3); Eosinophils Percent Auto 3.4 % (0-4.4); Hematocrit 41.7 % (42.0-52.0); Immature Granulocyte Absolute 0.03 K/mm3 (0.00-0.031); Immature Granulocyte Percent A 0.4 % (0-0.5); Immature Platelet Fraction Pct 5.2 % (0.9-11.2); Lymphocytes Absolute Auto 1.89 K/mm3 (0.9-3.2); Lymphocytes Percent Auto 26.6 % (18.3-44.2); Mean Corpuscular HGB Conc 33.6 g/dl (32-36); Mean Corpuscular Hemoglobin 30.8 pg (26-34); Mean Corpuscular Volume 91.6 fl (80-100); Mean Platelet Volume 10.1 fl (7.4-10.4); Monocytes Absolute Auto 0.5 K/mm3 (0.1-0.6); Monocytes Percent Auto 7.6 % (2.6-8.5); Neutrophils Absolute Auto 4.4 K/mm3 (1.3-6.7); Neutrophils Percent Auto 61.4 % (45.5-73.1); Platelet Count Result 237 k/mm3 (150-375); Red Blood Count 4.55 M/mm3 (4.6-6.20); Red Cell Distribution Width 12.3 % (11.5-14.5); White Blood Count 7.1 K/mm3 (4.5-10.0)
[2022-04-25 04:42] LABS: Lactic Acid Reflex 0.9 mmol/L (0.7-2.0)
[2022-04-25 04:45] LABS: Alanine Aminotransferase 25 U/L (6-50); Albumin Level 4.3 g/dL (3.5-5.1); Alkaline Phosphatase 37 U/L (38-126); Anion Gap 6 mmol/L (8-16); Aspartate Amino Transferase 26 U/L (17-59); Bilirubin,Total 0.7 mg/dL (0.2-1.3); Blood Urea Nitrogen 14 mg/dL (9-20); Carbon Dioxide 26 mmol/L (22-30); Chloride 104 mmol/L (98-107); Estimated CRCL calculation 119 ml/min; Estimated Glomerular Filt Rate > 60; Glucose 96 mg/dL (65-110); Lipase 70 U/L (23-300); Magnesium 1.9 mg/dL (1.6-2.3); Potassium 4.2 mmol/L (3.4-5.0); Sodium 136 mmol/L (137-145)
[2022-04-25] MEDS: hydrALAZINE HCL 20 MG/ML VIAL 10 MG IV PUSH ×2 (07:36→08:17)
--- NOTE | 2022-04-25 08:36 | WPDNEURCNPN ---
Assessment and Plan Assessment and plan (1) Cervical pain (neck): Code(s): M54.2 - Cervicalgia Status: Acute (2) Numbness and tingling of left lower extremity: Code(s): R20.0 - Anesthesia of skin; R20.2 - Paresthesia of skin Status: Acute (3) Hypertensive urgency: Code(s): I16.0 - Hypertensive urgency Status: Acute (4) Obesity: Code(s): E66.9 - Obesity, unspecified Status: Acute Plan Robert Tafoya is a 61 year old male who presented to the emergency department on 04/24 due to complaints of URI symptoms/chest pain as well as numbness/pain in the left upper extremity as well as the face, lips, and chest. Location of symptoms does not quite fit a clear vascular distribution, but stroke is a consideration. Another possibility is radiculopathy given degenerative changes and narrowing noted on CT cervical spine, although would not explain facial and perioral numbness. Will also need to rule out transverse myelitis given paresthesias in the chest/abdomen. - Recommend MRI brain w/wo contrast and MRI cervical spine w/wo contrast and MRI thoracic spine w/wo contrast - Obtain CTA brain/carotid and surface echo w/ bubble study - Check HgbA1c and Lipid panel - Started on daily Aspirin Consult date: 04/25/22 Time Seen: 08:36 Reason for consult: Left sided numbness/weakness HPI: Robert Tafoya is a 61 year old male who presented to the emergency department on 04/24 due to complaints of URI symptoms, shortness of breath and chest tightness. He was also complaining of tingling in his chest. Other than inhalers he did not take any medications. His CXR was negative as were FLU/RSV/COVID tests. His BP was elevated to 190s systolic so he was given hydralazine without significant improvement. He complained of left neck pain as well as pain on the left side of his face radiating to his ear down th the left arm as well as numbness and tingling around chest and left arm. He also reported numbness and tingling of the lips. He had an unremarkable EKG and his troponin were negative. CT cervical spine did not show any significant abnormality other than foraminal narrowing. Patient is currently being treated for left ear infection and dental abscess, but continues to have patchy areas of numbness in the left ear and left arm. He also is complaining of pricking sensations in his chest and abdomen. He denies any weakness, vision or speech changes. Review of Systems Constitutional: Constitutional: Reports no additional constitutional complaints Eyes: Eyes: Reports no additional eye complaints ENT: Reports system reviewed and no additional complaints, except as documented Cardiovascular: Cardiovascular: Reports chest pain Respiratory: Respiratory: Reports dyspnea on exertion Gastrointestinal: Gastrointestinal: Denies abdominal pain, Denies constipation, Denies diarrhea and Denies vomiting Genitourinary: Genitourinary: Reports no additional male genitourinary complaints Musculoskeletal: Musculoskeletal: Reports back pain and Reports neck pain Integumentary/Breasts: Skin/Breast: Reports system reviewed and no additional complaints, except as docu Neurologic: Reports as per HPI Psychiatric: Psychiatric: Reports no additional psychiatric complaints PMFSH Past Medical History Medical History COVID-19 virus infection Obesity Sciatica Surgical History Surgical History No pertinent past surgical history Family History Family History Father Hypertension Mother Dementia Social History Social History Social History: The patient lives home alone and is . 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 He has 3 children. Patient stated he had been drinking heavily for while but has not
[2022-04-25 09:08] LABS: Cholesterol 195 mg/dL (0-200); HDL Direct 43 mg/dL; Triglycerides 114 mg/dL (<150)
[2022-04-25] MEDS: AMOXICILLIN/CLAVULANATE K 875-125 MG TAB 1 TABLET PO ×2 (09:11→20:13)
[2022-04-25] MEDS: METOPROLOL TARTRATE 50 MG TAB PO ×2 (09:11→20:12)
[2022-04-25 09:18] LABS: LDL Cholesterol Direct 115 mg/dL
[2022-04-25 09:37] LABS: Hemoglobin A1C 5.5 % (<5.7)
--- NOTE | 2022-04-25 09:45 | PM.IMPN ---
Progress Note: A&P Assessment and Plan (1) Chest pain: Qualifiers: Chest pain type: unspecified Qualified Code(s): R07.9 - Chest pain, unspecified Code(s): R07.9 - Chest pain, unspecified Status: Acute Assessment and Plan: -troponins are negative so far. -will get an echo. (2) Hypertensive urgency: Code(s): I16.0 - Hypertensive urgency Status: Acute Assessment and Plan: -it appears that patient's blood pressures been elevated for quite some time now. - An echo has been ordered -p.r.n. hydralazine -continue on metoprolol (3) Numbness and tingling of left lower extremity: Code(s): R20.0 - Anesthesia of skin; R20.2 - Paresthesia of skin Status: Acute Assessment and Plan: -an echo has been ordered -MRI has been ordered. -CT of the cervical spine was ordered and was read as: No acute fracture or traumatic malalignment in the cervical spine. Multilevel severe bilateral neural foraminal narrowing and central canal narrowing secondary to degenerative changes. Left mastoid effusion. -neurology has been consulted (4) Mastoiditis: Code(s): H70.90 - Unspecified mastoiditis, unspecified ear Status: Acute Assessment and Plan: CT of the neck shows left mastoid effusion. Start on Augmentin. Discontinue Unasyn (5) Cervical pain (neck): Code(s): M54.2 - Cervicalgia Status: Acute Assessment and Plan: -CT show showed Multilevel severe bilateral neural foraminal narrowing and central canal narrowing secondary to degenerative changes. Subjective Date/time seen: 04/25/22 09:45 Patient reports headache at this time. Also reports some perioral tingling Review of Systems Constitutional: Constitutional: Reports as per HPI Eyes: Eyes: Reports no additional eye complaints ENT: Reports system reviewed and no additional complaints, except as documented Cardiovascular: Cardiovascular: Reports chest pain Respiratory: Respiratory: Reports dyspnea on exertion Gastrointestinal: Gastrointestinal: Denies abdominal pain, Denies constipation, Denies diarrhea and Denies vomiting Genitourinary: Genitourinary: Reports no additional male genitourinary complaints Musculoskeletal: Musculoskeletal: Reports back pain and Reports neck pain Integumentary/Breasts: Skin/Breast: Reports system reviewed and no additional complaints, except as docu Neurologic: Reports as per HPI Psychiatric: Psychiatric: Reports no additional psychiatric complaints Exam Const: General: comfortable and no acute distress HENMT: Mouth: Yes moist mucous membranes Eyes: Pupils: Equal, round and reactive pupils present EOM: EOMs intact bilaterally Resp: Effort & Inspection: normal respiratory effort Auscultation: clear to auscultation bilaterally Cardio: Rate: regular rate Rhythm: regular rhythm GI: GI Palp: Yes Soft to palpation Auscultation: normal bowel sounds Skin: General skin exam: normal color Neuro: Other: Pupils equal and reactive bilaterally, EOMI, face symmetric, facial sensation intact, tongue protrudes midline, palate midline. Shoulder shrug normal. Strength 5/5 throughout. Sensation intact throughout. FNF normal bilaterally. Language comprehension and fluency intact. Gait deferred. Extrem: General: normal to inspection Psych: Mental Status: mental status grossly normal Objective Data Vital Signs Vital Signs: Vital Signs - 24 hr 04/24/22 14:25 04/24/22 16:07 04/24/22 16:10 Temperature 97.9 F Pulse Rate 79 72 73 Respiratory Rate 18 20 Blood Pressure 170/91 H Pulse Oximetry 98 Oxygen Delivery 04/24/22 16:28 04/24/22 16:08 04/24/22 16:09 Temperature Pulse Rate 76 74 76 Respiratory Rate 15 14 13 Blood Pressure 176/95 H Pulse Oximetry 97 94 Oxygen Delivery 04/24/22 16:15 04/24/22 16:17 04/24/22 16:30 Temperature Pulse Rate 79 72 72 Respiratory Rate 15 17 17 Blood Pressure 162/98 H Pul
[2022-04-25] MEDS: FLUTICASONE/UMECLIDIN/VILANTER 100-62.5-25 MCG ELLIPTA 1 PUFF INHALATION (09:59)
[2022-04-25 11:20] LABS: Glucose Point of Care 129 mg/dl (65-105)
[2022-04-26] MEDS: ACETAMINOPHEN 500 MG TABLET 1000 MG PO ×2 (01:48→07:49)
[2022-04-26 05:08] VITALS: BP 136/76; PULSE 81; RESP 20; TEMP 36.8; O2SAT 100
[2022-04-26 07:48] VITALS: PULSE 70
[2022-04-26] MEDS: ASPIRIN 81 MG CHEWABLE TABLET PO (07:48)
[2022-04-26] MEDS: AMOXICILLIN/CLAVULANATE K 875-125 MG TAB 1 TABLET PO (07:48)
[2022-04-26] MEDS: METOPROLOL TARTRATE 50 MG TAB PO (07:48)
[2022-04-26 08:02] VITALS: BP 150/80; PULSE 69; RESP 16; TEMP 36; O2SAT 96
--- NOTE | 2022-04-26 08:08 | WPDNEUROPN ---
Progress Note: A&P Assessment and Plan (1) Myelomalacia: Code(s): G95.89 - Other specified diseases of spinal cord Status: Acute (2) Cervical pain (neck): Code(s): M54.2 - Cervicalgia Status: Acute (3) Numbness and tingling of left lower extremity: Code(s): R20.0 - Anesthesia of skin; R20.2 - Paresthesia of skin Status: Acute Plan Robert Tafoya is a 61 year old male who presented to the emergency department on 04/24 due to complaints of URI symptoms/chest pain as well as numbness/pain in the left upper extremity as well as the face, lips, and chest. Stroke work-up was negative. MRI cervical spine did show evidence of myelomalacia in C4-C5 which is likely the cause of LUE symptoms, although does not necessarily explain facial symptoms. - Please consult Neurosurgery regarding MRI cervical spine findings Subjective Date/time seen: 04/26/22 08:08 Interval history: Robert Tafoya is a 61 year old male who presented to the emergency department on 04/24 due to complaints of URI symptoms, shortness of breath and chest tightness. He was also complaining of tingling in his chest. Other than inhalers he did not take any medications. His CXR was negative as were FLU/RSV/COVID tests. His BP was elevated to 190s systolic so he was given hydralazine without significant improvement. He complained of left neck pain as well as pain on the left side of his face radiating to his ear down the the left arm as well as numbness and tingling around chest and left arm. He also reported numbness and tingling of the lips. He had an unremarkable EKG and his troponin were negative. CT cervical spine did not show any significant abnormality other than foraminal narrowing. Patient is currently being treated for left ear infection and dental abscess, but continues to have patchy areas of numbness in the left ear and left arm. He also is complaining of pricking sensations in his chest and abdomen. He denies any weakness, vision or speech changes. MRI brain was negative. MRI thoracic spine showed evidence of spondylosis. MRI cervical spine showed severe cervical spondylosis with signal change in C4-C5 indicating myelomalacia. Review of Systems Constitutional: Constitutional: Reports no additional constitutional complaints Eyes: Eyes: Reports no additional eye complaints ENT: Reports system reviewed and no additional complaints, except as documented Cardiovascular: Cardiovascular: Reports chest pain Respiratory: Respiratory: Reports dyspnea on exertion Gastrointestinal: Gastrointestinal: Denies abdominal pain, Denies constipation, Denies diarrhea and Denies vomiting Genitourinary: Genitourinary: Reports no additional male genitourinary complaints Musculoskeletal: Musculoskeletal: Reports back pain and Reports neck pain Integumentary/Breasts: Skin/Breast: Reports system reviewed and no additional complaints, except as docu Neurologic: Reports as per HPI Psychiatric: Psychiatric: Reports no additional psychiatric complaints Exam Const: General: comfortable and no acute distress HENMT: Mouth: Yes moist mucous membranes Eyes: Pupils: Equal, round and reactive pupils present EOM: EOMs intact bilaterally Resp: Effort & Inspection: normal respiratory effort Auscultation: clear to auscultation bilaterally Cardio: Rate: regular rate Rhythm: regular rhythm GI: GI Palp: Yes Soft to palpation Auscultation: normal bowel sounds Skin: General skin exam: normal color Neuro: Other: Pupils equal and reactive bilaterally, EOMI, face symmetric, facial sensation intact, tongue protrudes midline, palate midline. Shoulder shrug normal. Strength 5/5 throughout. Sensation intact throughout. FNF normal bilaterally. Language comprehension and fluency intact. Gait deferred. Extrem: General: normal to inspection Psych: Mental Status: mental status grossly normal Objective Data Vital Signs Vital Signs: Vital Sign
[2022-04-26] MEDS: ALBUTEROL SULFATE (*SP) AEROSOL 1 PUFF 2 PUFF INHALATION (08:28)
[2022-04-26] MEDS: FLUTICASONE/UMECLIDIN/VILANTER 100-62.5-25 MCG ELLIPTA 1 PUFF INHALATION (08:28)
[2022-04-26 08:31] VITALS: O2SAT 96
--- NOTE | 2022-04-26 11:21 | WPDNEUROSGCN ---
Assessment and Plan Assessment and plan (1) Cervical stenosis of spinal canal: Code(s): M48.02 - Spinal stenosis, cervical region Status: Acute Plan Mr. Tafoya is a 61-year-old gentleman with strange symptoms in his face arm and chest with tingling in these locations that is hard to directly refer to his neck. However he does have severe central canal stenosis and some malacia in the spinal cord. So far, this may be completely asymptomatic. However, he should follow up with me as an outpatient for further monitoring of this problem potential surgical management if necessary. He may be discharged from the hospital and enjoys full activity from my perspective. We discussed the signs and symptoms of myelopathy, which can be debilitating and severe, and that he should contact me immediately should he start to experience any of those issues and should follow up with me within the next month for me to monitor and employment counselor him. Review of Systems Review of Systems: Patient denies shortness of breath, cough, fever, chills, nausea, vomiting, weight loss, weight gain, chest pain, dysuria. He has neck discomfort and stiffness. He has tingling in his face chest arm and part of his leg. This has resolved mostly. He has high blood pressure. He denies headache. His review of systems is otherwise negative on 12 systems except as noted elsewhere. [facility] Past Medical History Medical History COVID-19 virus infection Obesity Sciatica Surgical History Surgical History No pertinent past surgical history Family History Family History Father Hypertension Mother Dementia Social History Social History Social History: The patient lives home alone and is . 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 Patient stated he had been drinking heavily for while but has not drank any alcohol in 1 week. He is a former smoker. He does not use any illicit drugs. He does not have anybody that is a durable power landing gear mechanic for healthcare. -code status full code Smoking packs per day: 2 Smoking cigarettes per day: 40.0 Years smoked: 30 Smoking pack-years: 60.00 Smoking status: Former smoker Tobacco type: cigarettes Alcohol intake: current Drinks per week: 18 Substance use: current Substance use type: marijuana Last use: 04/23/22 Lack of Transportation: No Lack of Food: Never True Current Housing: I Do Not Have Housing Concerned About Future Housing: No Difficulty Paying Gas/Electric Bills: No Difficulty Paying for Meds: No Currently Unemployed: No Education: Grade School Difficulty w/ Childcare or Family Care: No Gender identity (if verbalized by the patient): Male Spiritual care concerns: No Meds Home Medications and Allergies Home Medications Medication Instructions Recorded Confirmed Type acetaminophen 500 mg tablet 1,000 mg PO Q6H PRN Mild Pain 04/24/22 04/24/22 History (Tylenol Extra Strength) (Scale Score 1-4) albuterol sulfate 90 mcg/actuation 2 puff inhalation Q4-6H PRN 04/24/22 04/24/22 History aerosol inhaler Shortness Of Breath budesonide 160 mcg-glycopyr 9 2 inh inhalation BID 04/24/22 04/24/22 History mcg-formot 4.8 mcg/actuation HFA inhaler (Breztri Aerosphere) Allergies Allergy/AdvReac Type Severity Reaction Status Date / Time Cat Dander Allergy Intermediate RESPIRATORY Uncoded 02/18/21 11:54 Chicken Feathers Allergy Intermediate RESPIRATORY Uncoded 02/18/21 11:54 Vital Signs Vital Signs - 24 hr 04/25/22 16:14 04/25/22 20:07 04/25/22 20:12 Temperature 98.8 F 97.4 F L Pulse Rate 68 58 L 58 L Respiratory Rate 18 20 Blood Pressure 152/90 H 152/85 H Pulse Oximetry 98 98 Oxygen Delivery 04/25/22 20:00
--- NOTE | 2022-04-26 13:52 | PM.DS ---
DS: Admitting Diagnosis Discharge Date 04/26/22 Admitting Diagnosis Neck pain and chest pain DS: Discharge Diagnosis Discharge Diagnosis (1) Chest pain: Qualifiers: Chest pain type: unspecified Qualified Code(s): R07.9 - Chest pain, unspecified Code(s): R07.9 - Chest pain, unspecified Status: Acute (2) Hypertensive urgency: Code(s): I16.0 - Hypertensive urgency Status: Acute (3) Numbness and tingling of left lower extremity: Code(s): R20.0 - Anesthesia of skin; R20.2 - Paresthesia of skin Status: Acute (4) Mastoiditis: Code(s): H70.90 - Unspecified mastoiditis, unspecified ear Status: Acute (5) Cervical pain (neck): Code(s): M54.2 - Cervicalgia Status: Acute (6) Cervical stenosis of spinal canal: Code(s): M48.02 - Spinal stenosis, cervical region Status: Acute (7) Myelomalacia: Code(s): G95.89 - Other specified diseases of spinal cord Status: Acute DS: Summary Hospital Course Reason for hospitalization: 61yo male here for neck and chest pain. Please see H&P for details Hospital Course: The patient complains of neck and chest pain.? The patient recently was treated for upper respiratory infection with?azithromycin and an inhaler.?In the ED, CXR clear. Trop negative x [address] showing borderline [address]-T wave changes i the high lateral leads and age indeterminate anteroseptal and inferior DE. Some of the EKG findings are new compared to one year ago. Echo was read as normal without wall motion abnormalities. He describes the chest discomfort as pins and needles to the left upper chest and arm. Not felt he was having cardiac ischemic chest pain. He was started on metoprolol and BP improved. Will back down on metoprolol and add losartan. Brain CT showing no acute findings. Cervical spine CT showing no acute fracture or traumatic malalignment. BP was elevated in the ED to 197/111. The patient was given a nebulizer treatment and Apresoline in the emergency room.? Influenza, RSV and COVID were negative.??Brain MRI showing moderate nonspecific cerebral white matter disease and pontine disease. Cervical spine MRI showing myelomalacia at C4-C5, severe central canal stenosis (C4-5) and cervical spondylosis. Thoracic MRI showing mild spondylosis. A left mastoid effusion noted and Augmentin started. He was seen by Neurology and Neurosurgery. Patient feels well. Chest and arm discomfort improved and felt these symptoms related to his cervical spine disease. Plan for discharge home with him to follow up with Neurosurgery. Patient overall did well and was able to be discharged home 04/26/2022 Status at Discharge Cognitive/behavioral status at discharge: Stable Time Spent with Patient Time attestation: Total time spent providing and/or coordinating discharge services: 35 minutes Time spent: Greater than 30 minutes Exam Narrative: AF 96.8 150/80 69 16 96% ra Gen - NARD Chest - CTA bilaterally, nml RR CV - RRR S1/S2. Tele no alarms Abd - Soft, NT/ND, Positive BS Ext - No pedal edema Neuro - Alert and oriented. Nonfocal exam. Psych - Nml mood and affect Skin - Warm and dry Discharge Plan Discharge Attending physician on discharge: Alfredito Rios Consulting providers: Myranda Donahue ; Wendy King ; Moses Ceron Discharging Clinician: Alfredito Rios Anticipated Discharge Date/Time: 04/26/22 14:17 Patient Disposition: Home, Self-Care Activity: no straining and other - see discharge instructions Diet: heart healthy Discharge Instructions: Check blood pressure 1 to 2 times a day. Record and bring into your doctor for review. Call your doctor if your blood pressure is greater than 180/110. Please complete your antibiotic course even if you are starting to feel well. Light duty until seen by the Neurosurgeon No heavy lifting or straining. Contact your doctor or call 911 and come to
[2022-04-27 21:17] LABS: Mumps Virus IgM Antibody <1:20
--- NOTE | 2022-05-04 09:04 | PC.NURSE ---
Mumps IgM is WNL at <1 ;20. Dr. Rios aware.
== END 2022-04-26 14:50 | disposition home or self-care (01) ==
LOC: ANHED 18:39 → ANHIMU 04-25 09:32
PROVIDERS: Emergency Medicine; Nurse Practitioner; Physician Assistant; Student in an Organized Health Care Education/Training Program; Admitting Provider Hospitalist; Emergency Provider Emergency Medicine; PCP Family Medicine; Visit Provider Internal Medicine
DX: I16.0 Hypertensive urgency (principal); R05.9 Cough, unspecified; R09.89 Other specified symptoms and signs involving the circulatory and respiratory systems; R94.31 Abnormal electrocardiogram [ECG] [EKG]; H70.90 Unspecified mastoiditis, unspecified ear; M48.02 Spinal stenosis, cervical region; M47.812 Spondylosis without myelopathy or radiculopathy, cervical region; M47.814 Spondylosis without myelopathy or radiculopathy, thoracic region; M50.30 Other cervical disc degeneration, unspecified cervical region; G95.89 Other specified diseases of spinal cord; M41.83 Other forms of scoliosis, cervicothoracic region; R90.82 White matter disease, unspecified; H74.8X2 Other specified disorders of left middle ear and mastoid; E66.9 Obesity, unspecified; Z68.35 Body mass index [BMI] 35.0-35.9, adult; F10.90 Alcohol use, unspecified, uncomplicated; F12.90 Cannabis use, unspecified, uncomplicated; Z87.891 Personal history of nicotine dependence; Z20.822 Contact with and (suspected) exposure to COVID-19; Z86.16 Personal history of COVID-19; Z79.1 Long term (current) use of non-steroidal anti-inflammatories (NSAID); Z79.51 Long term (current) use of inhaled steroids
CPT/HCPCS: 36415; 70450; 70553; 71046; 72125; 72156; 72157; 80053; 80061; 82948; 83036; 83605; 83690; 83735; 84443; 84484; 85025; 85055; 85610; 85730; 86735; 87637; 93005; 93306; 94640; 96365; 96366; 96374; 96375; 96376; 99285; A9270; A9577; G0378; J0295; J0360

== ENCOUNTER 2022-05-04 10:03 | Outpatient (CLI) | payer OTHER, SELFPAY ==
--- NOTE | ~2022-05-04 | XR_ITS ---
EXAM: XR lumbar spine 2-3V DATE: 05/04/2022 10:30 HISTORY: LT SIDE LOW BACK PAIN RADIATES DOWN THE LEG . COMPARISON: None available. FINDINGS: 5 nonrib-bearing lumbar-type vertebral bodies. Pedicles intact. Vertebral body heights pre served. Mild disc space narrowing at L4-5. Multilevel marginal osteophytosis, including bridging late ral osteophytes at multiple levels. Multilevel trace retrolistheses of the upper and mid lumbar spine . Trace anterolisthesis at L4-5. Multilevel facet sclerosis and hypertrophy. Abdominal aortic calcifi cation, without evident aneurysm. No fracture or dislocation. IMPRESSION: Multilevel degenerative disc disease and facet arthropathy. Reviewed, dictated and finalized at location K. R PRESS OPERATOR
== END 2022-05-04 10:04 | disposition home or self-care (01) ==
PROVIDERS: PCP Family Medicine; Visit Provider Physician Assistant
DX: M54.16 Radiculopathy, lumbar region (principal); M51.36 Other intervertebral disc degeneration, lumbar region
CPT/HCPCS: 72100

== ENCOUNTER 2022-05-15 20:35 | Emergency (ER) | payer OTHER, SELFPAY ==
[2022-05-15] VITALS (23 sets, daily range): BP systolic 148–215; BP diastolic 67–103; PULSE 63–86; RESP 12–20; TEMP 36.3; O2SAT 91–98
--- NOTE | ~2022-05-15 | CT_ITS ---
EXAMINATION: CTA chest PE protocol DATE: 05/15/2022 22:39 INDICATION: L side chest pain/back pain, SOB,cough,evelated D-dimer 0.51 TECHNIQUE: Computed tomography angiography (CTA) of the chest was performed with 100 mL Omnipaque-350 intravenous contrast timed to evaluate the pulmonary arteries. Coronal maximum intensity projection 3D-reconstructions were created by the technologist. The dose-length product (DLP) was 752.43 mGy-cm. Automated exposure control and iterative reconstruction technique were employed. COMPARISON: 10/04/2019, x-ray chest 05/15/2022. FINDINGS: Lung parenchyma and airways: Clear. Anterior right upper lobe scar. Pleura: Unremarkable. Thoracic inlet, axillae and chest wall: Unremarkable. Thoracic aorta: Mild arch calcification. Mediastinum: Normal. Heart and pericardium: Normal. Coronary artery calcifications: Absent. Upper abdomen: No significant finding. Bones: No acute osseous finding. 1. Pulmonary arteries: Study quality: Mildly limited by beam hardening and motion artifact in the lo wer lobes bilaterally, but overall diagnostic. Acute. No pulmonary emboli detected. IMPRESSION: No CT evidence of acute pulmonary embolus. Reviewed, dictated and finalized at location K. IR TABLE OPERATOR
--- NOTE | ~2022-05-15 | XR_ITS ---
EXAMINATION: XR chest 1V portable Exam Date/Time: 05/15/2022 20:45 JOURNAL ENTRY AUDIT CLERK HISTORY: cough Comparison: 04/24/2022. RESULT: Lines, tubes, and devices: None. Lungs and pleura: Clear. Cardiomediastinal silhouette: Stable. Other: No acute osseous or upper abdominal finding. IMPRESSION: No acute cardiopulmonary process. Reviewed, dictated and finalized at location K. NAL ENTRY AUDIT CLERK
--- NOTE | 2022-05-15 20:58 | ECG_ITS ---
Measurements Intervals [place] Rate: 77 P: 49 MO: 139 QRS: 18 QRSD: 90 T: 49 QT: 353 QTc: 400 Interpretive Statements SINUS RHYTHM CANNOT RULE OUT PRIOR ANTEROSEPTAL TN ABNORMAL ECG COMPARED TO ECG 04/24/2022 14:24:49 INFERIOR Q WAVES ARE NO LONGER SEEN Electronically Signed On 05-16-2022 6:22:41 HAND FINISHER by Nathanael Cat M.D.
--- NOTE | 2022-05-15 21:08 | ED.GENADULT ---
HPI - General Adult General Chief complaint: Upper Respiratory Infection Stated complaint: SOB/Cough, left lung pain Time Seen by Provider: 05/15/22 20:43 Source: RN notes reviewed History of Present Illness HPI narrative: Patient presents emergency department from home for cough. Patient states has been having a nonproductive cough for the past 1 week states has been associated with a sensation of burning in his lower chest states that that sensation has been constant for the past 1 week he denies having fevers or chills he denies any production of his cough he denies any abdominal pain nausea or vomiting states that he was recently admitted to the hospital on had hypertension was placed on hypertensive medications which she has been taking. States he has not missed any doses Related Data Home Medications Medication Instructions Recorded Confirmed acetaminophen 500 mg tablet 1,000 mg PO Q6H PRN Mild Pain 04/24/22 04/24/22 (Tylenol Extra Strength) (Scale Score 1-4) albuterol sulfate 90 mcg/actuation 2 puff inhalation Q4-6H PRN 04/24/22 04/24/22 aerosol inhaler Shortness Of Breath budesonide 160 mcg-glycopyr 9 2 inh inhalation BID 04/24/22 04/24/22 mcg-formot 4.8 mcg/actuation HFA inhaler (Breztri Aerosphere) prednisone 20 mg tablet mg 05/15/22 Allergies Allergy/AdvReac Type Severity Reaction Status Date / Time Cat Dander Allergy Intermediate RESPIRATORY Uncoded 05/15/22 20:36 Chicken Feathers Allergy Intermediate RESPIRATORY Uncoded 05/15/22 20:36 Review of Systems Review of Systems: Gen.: Denies fevers or chills ENT: Denies congestion Respiratory: See HPI CV: Reports lower chest burning GI: Denies abdominal pain nausea, emesis or diarrhea Musculoskeletal: Denies back pain or muscle pain Neuro: Denies numbness, tingling, weakness or focal weakness Skin: Denies rash Except as documented, all other systems reviewed and negative [facility] Past Medical History Medical History COVID-19 virus infection Obesity Sciatica Surgical History Surgical History No pertinent past surgical history Family History Family History Father Hypertension Mother Dementia Social History Social History Social History: The patient lives home alone and is . 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 Patient stated he had been drinking heavily for while but has not drank any alcohol in 1 week. He is a former smoker. He does not use any illicit drugs. He does not have anybody that is a durable power criminal attorney for healthcare. -code status full code Smoking packs per day: 2 Smoking cigarettes per day: 40.0 Years smoked: 30 Smoking pack-years: 60.00 Smoking status: Former smoker Tobacco type: cigarettes Alcohol intake: current Drinks per week: 18 Substance use: current Substance use type: marijuana Last use: 04/23/22 Lack of Transportation: No Lack of Food: Never True Current Housing: I Do Not Have Housing Concerned About Future Housing: No Difficulty Paying Gas/Electric Bills: No Difficulty Paying for Meds: No Currently Unemployed: No Education: Grade School Difficulty w/ Childcare or Family Care: No Gender identity (if verbalized by the patient): Male Spiritual care concerns: No Exam Narrative: APPEARANCE: No acute distress, nontoxic, resting in bed EYES: EOMI HEENT: Normocephalic, atraumatic, OMM RESPIRATORY: No respiratory distress Clear to auscultation bilaterally with no rhonchi wheezing or rales. CARDIOVASCULAR: Regular rate and rhythm without murmurs rubs or gallops. ABDOMINAL: Soft, nontender, nondistended, no rebound or guarding MUSCULOSKELETAl: Moves all extremities. No clubbing, cyanosis or edema. NEURO: Awake and alert.
[2022-05-15 21:18] LABS: Basophils Absolute Auto 0.1 K/mm3 (0.0-0.1); Basophils Percent Auto 0.6 % (0.2-1.2); Eosinophils Absolute Auto 0.3 K/mm3 (0-0.3); Hematocrit 41.8 % (42.0-52.0); Hemoglobin 14.1 g/dL (14.0-18.0); Immature Granulocyte Absolute 0.04 K/mm3 (0.00-0.031); Immature Granulocyte Percent A 0.5 % (0-0.5); Lymphocytes Absolute Auto 1.89 K/mm3 (0.9-3.2); Lymphocytes Percent Auto 24.4 % (18.3-44.2); Mean Corpuscular HGB Conc 33.7 g/dl (32-36); Mean Corpuscular Hemoglobin 31.5 pg (26-34); Mean Corpuscular Volume 93.3 fl (80-100); Mean Platelet Volume 10.3 fl (7.4-10.4); Monocytes Absolute Auto 0.5 K/mm3 (0.1-0.6); Monocytes Percent Auto 6.2 % (2.6-8.5); Neutrophils Percent Auto 64.3 % (45.5-73.1); Platelet Count Result 241 k/mm3 (150-375); Red Blood Count 4.48 M/mm3 (4.6-6.20); Red Cell Distribution Width 12.3 % (11.5-14.5); White Blood Count 7.8 K/mm3 (4.5-10.0)
[2022-05-15 21:31] LABS: Alanine Aminotransferase 28 U/L (6-50); Albumin Level 4.5 g/dL (3.5-5.1); Alkaline Phosphatase 38 U/L (38-126); Anion Gap 9 mmol/L (8-16); Aspartate Amino Transferase 31 U/L (17-59); Bilirubin,Total 0.5 mg/dL (0.2-1.3); Blood Urea Nitrogen 19 mg/dL (9-20); Calcium 8.6 mg/dL (8.4-10.2); Carbon Dioxide 25 mmol/L (22-30); Chloride 103 mmol/L (98-107); Estimated CRCL calculation 121 ml/min; Estimated Glomerular Filt Rate > 60; Glucose 136 mg/dL (65-110); Potassium 4.2 mmol/L (3.4-5.0); Sodium 137 mmol/L (137-145)
[2022-05-15 21:41] LABS: NT Pro B Type Natriuretic Pept 47 pg/mL (5-100); Troponin I < 0.012 ng/mL (0.000-0.034)
[2022-05-15 21:44] LABS: D Dimer 0.51 ug/mL (<0.48)
[2022-05-15 21:54] LABS: Influenza A QL RT-PCR Negative (Negative); Influenza B QL RT-PCR Negative (Negative); SARS-CoV-2 RNA PCR Negative
--- NOTE | 2022-05-15 22:21 | PC.NURSE ---
Patient taken to CT via stretcher.
[2022-05-16] VITALS (9 sets, daily range): BP systolic 130–163; BP diastolic 72–89; PULSE 58–70; RESP 12–18; TEMP 36.8; O2SAT 96–98
[2022-05-16 01:02] LABS: Troponin I < 0.012 ng/mL (0.000-0.034)
== END 2022-05-16 01:39 | disposition home or self-care (01) ==
PROVIDERS: Emergency Provider Emergency Medicine; PCP Family Medicine
DX: K21.9 Gastro-esophageal reflux disease without esophagitis (principal); I10 Essential (primary) hypertension; Z87.891 Personal history of nicotine dependence; Z20.822 Contact with and (suspected) exposure to COVID-19
CPT/HCPCS: 36415; 71045; 71275; 80053; 83880; 84484; 85025; 85380; 85610; 85730; 87636; 93005; 99284; A9270; Q9967

== ENCOUNTER 2023-03-03 11:00 | Emergency (ER) | payer OTHER, SELFPAY ==
--- NOTE | ~2023-03-03 | CT_ITS ---
EXAMINATION: CT abdomen pelvis w con DATE: 03/03/2023 12:58 INDICATION: Right lower quadrant pain TECHNIQUE: Computed tomography (CT) of the abdomen and pelvis was performed with 100 cc Omnipaque 350 intravenous contrast. The dose-length product was 1217.74 mGy-cm. Automated exposure control and ite rative reconstruction technique were employed. COMPARISON: None. FINDINGS: There is right upper and lingular airspace disease which may represent atelectasis or devel oping pneumonia. Heart size normal. No significant pleural or pericardial effusion. Small fat-contain ing umbilical hernia. Small fat-containing bilateral inguinal hernias. Diffuse bladder wall thickenin g. Normal appendix. There is a 2 cm subcapsular hypervascular lesion with peripheral nodular enhancement, most likely zacarias ign hemangioma involving the right hepatic lobe. The spleen, pancreas, adrenal glands and left kidney are unremarkable. There are nonobstructing right renal stones. Nonobstructive bowel gas pattern. Col onic diverticulosis without evidence for diverticulitis. Small fat-containing umbilical hernia. Mild lumbar spondylosis. IMPRESSION: 1. Right upper lobe and lingular airspace disease which may represent atelectasis or developing pneum onia. 2: Diffuse bladder wall thickening. Consider cystitis in the appropriate clinical setting. 3: Nonobstructing right nephrolithiasis. Reviewed, dictated and finalized at location B. IMPRESSION: 1. Right upper lobe and lingular airspace disease which may represent atelectas is or developing pneumonia. 2: Diffuse bladder wall thickening. Consider cystitis in the appropriate clinic al setting. 3: Nonobstructing right nephrolithiasis.
[2023-03-03 11:02] VITALS: BP 180/98; PULSE 70; RESP 15; TEMP 36.4; O2SAT 98
--- NOTE | 2023-03-03 12:38 | ED.GENADULT ---
HPI - General Adult General Chief complaint: Unspecified Stated complaint: pain in groin muscle Time Seen by Provider: 03/03/23 11:42 History of Present Illness HPI narrative: Robert Tafoya is a 62 y/o male who presents with reports of having right lower abdominal pain for about 3 days, he states pain is constant and it has not improved over the past 3 days. He relates his pain to maybe wearing his belt too tight but pain is present even after taking his belt off. He denies any changes to his urine/ bowels/ denies fever/ chills/ Reports mild nausea but no vomiting, denies any testicular pain / swelling Related Data Home Medications Medication Instructions Recorded Confirmed acetaminophen 500 mg tablet 1,000 mg PO Q6H PRN Mild Pain 04/24/22 04/24/22 (Tylenol Extra Strength) (Scale Score 1-4) albuterol sulfate 90 mcg/actuation 2 puff inhalation Q4-6H PRN 04/24/22 04/24/22 aerosol inhaler Shortness Of Breath budesonide 160 mcg-glycopyr 9 2 inh inhalation BID 04/24/22 04/24/22 mcg-formot 4.8 mcg/actuation HFA inhaler (Breztri Aerosphere) prednisone 20 mg tablet mg 05/15/22 Allergies Allergy/AdvReac Type Severity Reaction Status Date / Time Cat Dander Allergy Intermediate RESPIRATORY Uncoded 03/03/23 11:13 Chicken Feathers Allergy Intermediate RESPIRATORY Uncoded 03/03/23 11:13 Review of Systems Review of Systems: CONSTITUTIONAL: Denies fever, chills, or sweats. EYES: Denies visual changes, redness, or discharge. ENT: Denies rhinorrhea, congestion, sore throat, or otalgia. CARDIOVASCULAR: Denies chest pain, palpitations, or edema. RESPIRATORY: Denies cough or dyspnea. GASTROINTESTINAL: Reports right lower abdominal pain with nausea, No vomiting, or diarrhea. GENITOURINARY: Denies dysuria or hematuria. SKIN: Denies rash or itching. MUSCULOSKELETAL: Denies back pain, joint pain, or myalgia. NEUROLOGIC: Denies headache, numbness, dizziness, or weakness. PSYCHIATRIC: Denies anxiety or depression. [facility] Past Medical History Medical History COVID-19 virus infection Obesity Sciatica Surgical History Surgical History No pertinent past surgical history Family History Family History Father Hypertension Mother Dementia Social History Social History Social History: The patient lives home alone and is . 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 Patient stated he had been drinking heavily for while but has not drank any alcohol in 1 week. He is a former smoker. He does not use any illicit drugs. He does not have anybody that is a durable power litigation attorney for healthcare. -code status full code Smoking packs per day: 2 Smoking cigarettes per day: 40.0 Years smoked: 30 Smoking pack-years: 60.00 Smoking status: Former smoker Tobacco type: cigarettes Alcohol intake: current Drinks per week: 18 Substance use: current Substance use type: marijuana Last use: 04/23/22 Lack of Transportation: No Lack of Food: Never True Current Housing: I Do Not Have Housing Concerned About Future Housing: No Difficulty Paying Gas/Electric Bills: No Difficulty Paying for Meds: No Currently Unemployed: No Education: Grade School Difficulty w/ Childcare or Family Care: No Gender identity (if verbalized by the patient): Male Spiritual care concerns: No Exam Narrative: GENERAL: Well-appearing, well-nourished, and in no acute distress. HEAD: Normocephalic, atraumatic. EYES: PERRLA and EOMI. ENT: Nares clear, no rhinorrhea or epistaxis. Mucous membranes moist. Oropharynx without tonsillar hypertrophy exudate or other lesions. Bilateral TMs pearly pérez nonbulging NECK: Supple. No adenopathy or masses. No carotid bruits or JVD CHEST: Clear to au
--- NOTE | 2023-03-03 12:40 | PC.NURSE ---
Pt to CT scan via w/c at this time.
[2023-03-03 12:42] LABS: Basophils Percent Auto 0.3 % (0.2-1.2); Eosinophils Absolute Auto 0.2 K/mm3 (0-0.3); Eosinophils Percent Auto 2.7 % (0-4.4); Hematocrit 41.1 % (42.0-52.0); Immature Granulocyte Absolute 0.05 K/mm3 (0.00-0.031); Immature Granulocyte Percent A 0.8 % (0-0.5); Lymphocytes Absolute Auto 1.46 K/mm3 (0.9-3.2); Lymphocytes Percent Auto 24.7 % (18.3-44.2); Mean Corpuscular HGB Conc 34.1 g/dl (32-36); Mean Corpuscular Hemoglobin 31.9 pg (26-34); Mean Corpuscular Volume 93.6 fl (80-100); Mean Platelet Volume 10.2 fl (7.4-10.4); Monocytes Absolute Auto 0.5 K/mm3 (0.1-0.6); Monocytes Percent Auto 8.5 % (2.6-8.5); Neutrophils Absolute Auto 3.7 K/mm3 (1.3-6.7); Platelet Count Result 215 k/mm3 (150-375); Red Blood Count 4.39 M/mm3 (4.6-6.20); Red Cell Distribution Width 12.3 % (11.5-14.5); White Blood Count 5.9 K/mm3 (4.5-10.0)
[2023-03-03 12:47] LABS: Estimated CRCL calculation 105 ml/min; Estimated Glomerular Filt Rate > 60
[2023-03-03 12:51] LABS: Alanine Aminotransferase 36 U/L (6-50); Albumin Level 4.7 g/dL (3.5-5.1); Alkaline Phosphatase 36 U/L (38-126); Anion Gap 8 mmol/L (8-16); Aspartate Amino Transferase 35 U/L (17-59); Bilirubin,Total 0.9 mg/dL (0.2-1.3); Blood Urea Nitrogen 15 mg/dL (9-20); Calcium 9.3 mg/dL (8.4-10.2); Carbon Dioxide 27 mmol/L (22-30); Chloride 99 mmol/L (98-107); Estimated CRCL calculation 119 ml/min; Estimated Glomerular Filt Rate > 60; Glucose 108 mg/dL (65-110); Potassium 4.1 mmol/L (3.4-5.0); Sodium 134 mmol/L (137-145)
[2023-03-03 12:55] LABS: Lactic Acid Reflex 1.2 mmol/L (0.7-2.0)
[2023-03-03 13:01] LABS: Appearance Urine Cloudy (Clear); Bacteria Urine None Seen /hpf; Bilirubin Urine Negative (Negative); Blood Urine Negative (Negative); Color Urine Yellow (Yellow); Glucose Urine UA Negative (Negative); Ketones Urine Negative (Negative); Leukocyte Esterase Ur Negative LEU/UL (Negative); Nitrate Urine Negative (Negative); Non Pathogenic Casts 0-2; Protein Urine Negative (Negative); RBC Urine 0-2 /hpf (0-2); Specific Grav Ur 1.014 (1.001-1.035); Squamous Epithelial Cell Urine None seen /hpf (Few); Urobilinogen Urine 0.2 mg/dL (<2.0); WBC Urine 0-5 /hpf; pH Urine 5.5 (5.0-9.0)
[2023-03-03 13:02] LABS: Add Urine Microscopic? YES
[2023-03-03 13:11] VITALS: BP 158/92; PULSE 67; RESP 15; O2SAT 98
== END 2023-03-03 14:30 | disposition home or self-care (01) ==
PROVIDERS: Emergency Provider Nurse Practitioner Family; PCP Family Medicine
DX: K42.9 Umbilical hernia without obstruction or gangrene (principal); Z86.16 Personal history of COVID-19; E66.9 Obesity, unspecified; Z68.36 Body mass index [BMI] 36.0-36.9, adult; Z87.891 Personal history of nicotine dependence; N20.0 Calculus of kidney; R93.41 Abnormal radiologic findings on diagnostic imaging of renal pelvis, ureter, or bladder; R91.8 Other nonspecific abnormal finding of lung field
CPT/HCPCS: 36415; 74177; 80053; 81001; 83605; 85025; 99284; Q9967

== ENCOUNTER 2024-03-16 12:21 | Emergency (ER) | payer OTHER, SELFPAY ==
[2024-03-16 12:32] VITALS: BP 136/94; PULSE 93; RESP 20; TEMP 37.2; O2SAT 97
[2024-03-16 12:49] LABS: EDCOVIDSCREEN Negative (Negative); EDINFLUASCREEN Negative (Negative); EDINFLUBSCREEN Negative (Negative)
--- NOTE | 2024-03-16 13:03 | ED.URI ---
HPI - URI/Sore Throat General Chief Complaint: Upper Respiratory Infection Stated Complaint: Sinus/Cough Time Seen by Provider: 03/16/24 13:03 Source: patient and RN notes reviewed Mode of arrival: ambulatory Limitations: no limitations History of Present Illness HPI Narrative: 63-year-old female presents with concern of for 2 week history of body aches, headache, nasal congestion and drainage, cough, shortness of breath. He reports his tear bronchitis and pneumonia. He denies taking anything [id number] other than Tylenol. MD elicited complaint: cough and nasal congestion Related Data Home Medications Medication Instructions Recorded Confirmed acetaminophen 500 mg tablet 1,000 mg PO Q6H PRN Mild Pain 04/24/22 03/16/24 (Tylenol Extra Strength) (Scale Score 1-4) albuterol sulfate 90 mcg/actuation 2 puff inhalation Q4-6H PRN 04/24/22 03/16/24 aerosol inhaler Shortness Of Breath budesonide 160 mcg-glycopyr 9 2 inh inhalation BID 04/24/22 03/16/24 mcg-formot 4.8 mcg/actuation HFA inhaler (Breztri Aerosphere) prednisone 20 mg tablet mg 05/15/22 Allergies Allergy/AdvReac Type Severity Reaction Status Date / Time Cat Dander Allergy Intermediate RESPIRATORY Uncoded 03/16/24 12:37 Chicken Feathers Allergy Intermediate RESPIRATORY Uncoded 03/16/24 12:37 Review of Systems Review of Systems: CONSTITUTIONAL: Reports malaise. Denies chills, sweats, or fever. EYES: Denies visual changes, redness, or discharge. ENT: Reports rhinorrhea, congestion CARDIOVASCULAR: Denies chest pain, palpitations, or edema. RESPIRATORY: Reports cough, dyspnea. GASTROINTESTINAL: Denies abdominal pain, nausea, vomiting, diarrhea SKIN: Denies rash or itching. MUSCULOSKELETAL: Denies myalgia. NEUROLOGIC: Reports headache. All systems reviewed & are unremarkable except as noted in HPI and below PMFSH Past Medical History Medical History COVID-19 virus infection Obesity Sciatica Surgical History Surgical History No pertinent past surgical history Family History Family History Father Hypertension Mother Dementia Social History Social History Social History: The patient lives home alone and is . 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 Patient stated he had been drinking heavily for while but has not drank any alcohol in 1 week. He is a former smoker. He does not use any illicit drugs. He does not have anybody that is a durable power patent prosecution attorney for healthcare. -code status full code Smoking packs per day: 2 Smoking cigarettes per day: 40.0 Years smoked: 30 Smoking pack-years: 60.00 Smoking status: Former smoker Tobacco type: cigarettes Alcohol intake: current Drinks per week: 18 Substance use: current Substance use type: marijuana Last use: 04/23/22 Lack of Transportation: No Lack of Food: Never True Current Housing: I Do Not Have Housing Concerned About Future Housing: No Difficulty Paying Gas/Electric Bills: No Difficulty Paying for Meds: No Currently Unemployed: No Education: Grade School Difficulty w/ Childcare or Family Care: No Gender identity (if verbalized by the patient): Male Spiritual care concerns: No Comments At time of signature, agree with nursing past medical, surgical, social and family history. There is no relevant family history pertinent to the presenting complaint Exam Narrative: GENERAL: Well-appearing, well-nourished, and in no acute distress. HEAD: Normocephalic EYES: PERRLA, conjunctivae clear ENT: Nares clear. Mucous membranes moist. TM pearly pérez with dull light reflex bilaterally; no tragal tenderness. Oropharynx not erythematous without lesions. Tonsils not enlarged and without exudate, no drooling,
== END 2024-03-16 13:15 | disposition home or self-care (01) ==
PROVIDERS: Emergency Provider Nurse Practitioner; PCP Family Medicine
DX: J40 Bronchitis, not specified as acute or chronic (principal); Z79.899 Other long term (current) drug therapy; Z87.891 Personal history of nicotine dependence; Z20.822 Contact with and (suspected) exposure to COVID-19
CPT/HCPCS: 87426; 87804; 99213; G0463

== ENCOUNTER 2024-04-02 12:08 | Outpatient (CLI) | payer OTHER, SELFPAY ==
--- NOTE | ~2024-04-02 | XR_ITS ---
Clinical Indication: Upper respiratory infection PA and lateral views of the chest: Comparison: 05/15/2022 Findings: The lungs are clear, without evidence of focal consolidation or pleural effusion. Cardiome diastinal silhouette is within normal limits. Bones and soft tissues are unremarkable. Impression: Normal chest. Reviewed, dictated and finalized at [facility]. Impression: Normal chest.
== END 2024-04-02 12:09 | disposition home or self-care (01) ==
LOC: ANHIMG 12:09
PROVIDERS: PCP Family Medicine; Visit Provider Nurse Practitioner Family
DX: J06.9 Acute upper respiratory infection, unspecified (principal)
CPT/HCPCS: 71046

== ENCOUNTER 2024-06-03 21:09 | Emergency (ER) | payer OTHER, SELFPAY ==
[2024-06-03 21:10] VITALS: BP 178/101; PULSE 73; RESP 15; TEMP 36.4; O2SAT 97
--- NOTE | 2024-06-04 05:39 | PC.NURSE ---
called for vital signs, no answer
--- OUTSIDE RECORDS SUMMARY | 2024-06-11 03:36 | XMS_ITS | Continuity of Care Document ---
Author Organization [place] [facility], [facility] Address [address] [place] [address] Assessment No assessment recorded. Plan of Treatment Reminders Order Date Submit Date Provider Last Modified By Organization Details Last Modified Time Details Appointments Follow Up 15 2024 10:30A M MARVEL Lance Not available Not available Not available Lab HbA1c (hemoglob in A1c), blood 2023 024 [email or web address] [facility], [address], [place], [address], 05/24/2024 08:08:08 TSH, serum or plasma 2023 024 [email or web address] [facility], [address], [place], [address], 05/24/2024 08:08:08 lipid panel, serum 2023 024 [email or web address] [facility], [address], [place], [address], 05/24/2024 08:08:08 CMP, serum or plasma 2023 024 [email or web address] [facility], [address], [place], [address], 05/24/2024 08:08:08 PSA, total + free, serum or plasma 2023 024 [email or web address] [facility], [address], [place], [address], 05/24/2024 08:08:08 noninvasi ve colorecta l cancer DNA + occult blood screening , QL, stool 2023 024 [email or web address] [facility] (Cologuard Orders Only), [address], [address], [place], [address], 05/24/2024 08:08:08 CBC w/ auto diff 2023 024 [email or web address] [facility], [address], [place], [address], 05/24/2024 08:08:08 Referral None recorded. Procedures None recorded. Surgeries None recorded. Imaging None recorded. Medication Orders meloxicam 7.5 mg tablet 2023 [facility][id number], [address] [place], [address], 05/17/2024 12:44:40 metoprolo l succinate ER 50 mg tablet,ex tended release 24 hr 2023 024 [facility] #2510, [address] [place], [address], 05/17/2024 12:44:40 losartan 50 mg-hydroc hlorothia zide 12.5 mg tablet 2023 024 [facility] #2510, [address] [place], [address], 05/17/2024 12:44:39 albuterol sulfate 2.5 mg/3 mL (0.083 %) solution for nebulizat ion 2023 024 [facility] #[id number], [address] [place], [address], 05/17/2024 12:44:41 Airsupra 90 mcg-80 mcg/actua tion HFA aerosol inhaler 2023 024 [facility], [address] [place] [address], [address], 05/17/2024 12:44:40 Patient TargetsNo targets recorded. Patient InstructionsNo instructions recorded. Reason for Referral None Reported. Problems Name Problem SNOMED Code Status Onset Date Resolution Date Notes Provider Name and Address Organization Details Recorded Time Asthma 129490553 Active Not Available [facility] Dyspnea 357661002 Active Not Available [facility] 09:20:00 Low back pain 378687055 Active Not Available [facility] 09:20:01 Bronchitis 62836510 Active Not Available [facility] 09:20:01 Exacerbation of intermittent asthma 140552044 Active 2022 MARVEL Eason [address], [address], [place], [address] , [facility] 3 17:41:16 Upper respiratory infection 95127636 Active 2023 BLAZE Negro [address], [address], [place], [address] , [facility] 4 12:21:11 Essential hypertension 06457429 Active 2023 BLAZE Negro [address], [address], [place], [address] , [facility] 4 12:32:37 Mild intermittent asthma 295183868 Active 2023 MARVEL Lance [address], [address], [place], [address] , [facility] 4 12:28:50 Degeneration of lumbar intervertebra l disc 52379950 Active 2023 MARVEL Lance [address], [address], [place], [address] , [facility] 4 12:40:26 Obesity 634545863 Active 2023 MARVEL Lance [address], [address], [place], [address] , [facility] [employer] [facility] 4 12:43:10 Disorder of prostate 45294880 Active 2023 MARVEL Lance [address], [facility] [address], [place], [address] , [facility] [employer] [facility] 4 12:43:38 Problem Notes None recorded. Medical Equipment None Reported. Allergies No known drug allergies Medications Name Sig Start Date Stop Date Status Note LastModified by Organization Details LastModified Time Prescriptio n - Renewal active Not Available Not Available Not Available cyclobenzap rine 10 mg tablet Take 1 tablet 3 times a day by oral route as needed. 11/27 completed Not Available Not Available Not Available amoxicillin 500 mg capsule 11/27 completed Not Available Not Available Not Available prednisone 10 mg tablet 07/03 completed Not Available Not Available Not Available albuterol sulfate 2.5 mg/3 mL (0.083 %) solution for nebulizatio n INHALE THE CONTENTS OF 1 VIAL VIA NEBULIZER EVERY 4 TO 6 HOURS NEEDED FOR WHEEZING active Not Available Not Available No t Available cetirizine 10 mg tablet 11/27 completed Not Available Not Available Not Available azithromyci n 250 mg tablet TAKE 2 TABLETS BY MOUTH TODAY, THEN TAKE 1 TABLET DAILY FOR 4 DAYS DIRECTED 05/17 completed Not Available Not Available Not Available benzonatate 200 mg capsule Take 1 capsule 3 times a day by oral route as needed for 10 days. active Not Available Not Available No t Available metoprolol succinate ER 50 mg tablet,exte nded release 24 hr Take 1 tablet every day by oral route as directed for 90 days. active Not Available Not Available No t Available methylpheni date 10 mg tablet TAKE 1 TABLET BY MOUTH EVERY DAY 05/17 completed Not Available Not Available Not Available albuterol sulfate 1.25 mg/3 mL solution for nebulizatio n 07/03 completed Not Available Not Available Not Available hydrocodone 5 mg-acetamin ophen 325 mg tablet 10/12 completed Not Available Not Available Not Available meloxicam 15 mg tablet TAKE 1 TABLET (15 MG TOTAL) BY MOUTH DAILY. 05/17 completed Not Available Not Available Not Available prednisone 20 mg tablet TAKE 2 TABLETS BY MOUTH EVERY DAY FOR 5 DAYS 05/17 completed Not Available Not Available Not Available penicillin V potassium 500 mg tablet TAKE 1 TABLET BY MOUTH FOUR TIMES A DAY UNTIL FINISHED 04/11 completed Not Available Not Available Not Available fexofenadin e 180 mg tablet Take 1 tablet every day by oral route. 05/17 completed Not Available Not Available Not Available tramadol 50 mg tablet Take 1 tablet every 6 hours by oral route. active Not Available Not Available No t Available meloxicam 7.5 mg tablet Take 1 tablet twice a day by oral route as needed for 90 days. active Not Available Not Available No t Available losartan 100 mg-hydrochl orothiazide 25 mg tablet TAKE 1 TABLET BY MOUTH EVERY DAY 05/17 completed Not Available Not Available Not Available amoxicillin 875 mg tablet TAKE 1 TABLET BY MOUTH EVERY 12 HOURS 05/03 completed Not Available Not Available Not Available benzonatate 100 mg capsule TAKE ONE CAPSULE BY MOUTH 3 TIMES A DAY 07/03 completed Not Available Not Available Not Available pantoprazol e 40 mg tablet,any yed release TAKE 1 TABLET BY MOUTH EVERYDAY AT BEDTIME 05/17 completed Not Available Not Available Not Available lisinopril 10 mg tablet Take 1 tablet every day by oral route as directed for 90 days. active Not Available Not Available No t Available prednisone 50 mg tablet 06/25 completed Not Available Not Available Not Available losartan 25 mg tablet TAKE 1 TABLET BY MOUTH EVERY DAY 05/20 completed Not Available Not Available Not Available metoprolol tartrate 50 mg tablet TAKE 1 TABLET BY MOUTH EVERY DAY active Not Available Not Available No t Available montelukast 10 mg tablet 1 po qday 05/17 completed Not Available Not Available Not Available codeine 10 mg-guaifene sin 100 mg/5 mL oral liquid Take 10 mL every 6 hours by oral route as needed. 07/15 completed Not Available Not Available Not Available ibuprofen 600 mg tablet TAKE 1 TABLET BY MOUTH EVERY 6 HOURS NEEDED FOR PAIN 05/03 completed Not Available Not Available Not Available methylpredn isolone 4 mg tablets in a dose pack TAKE 6 TABLETS ON DAY 1 DIRECTED ON PACKAGE AND DECREASE BY 1 TAB EACH DAY FOR A TOTAL OF 6 DAYS 05/17 completed Not Available Not Available Not Available albuterol sulfate HFA 90 mcg/actuati on aerosol inhaler INHALE 2 PUFFS EVERY 4-6 HOURS BY INHALATIO N ROUTE NEEDED. active Not Available Not Available No t Available losartan 50 mg-hydrochl orothiazide 12.5 mg tablet Take 1 tablet every day by oral route as directed for 90 days. active Not Available Not Available No t Available bromphenira mine-pseudo ephedrine-D M 2 mg-30 mg-10 mg/5 mL oral syrup Take 10 mL every 4 hours by oral route for 5 days. 11/27 completed Not Available Not Available Not Available losartan 100 mg tablet Take 1 tablet every day by oral route. 05/17 completed Not Available Not Available Not Available fluticasone propionate 50 mcg/actuati on nasal spray,suspe nsion 03/20 completed Not Available Not Available Not Available doxycycline hyclate 100 mg tablet Take 1 tablet twice a day by oral route for 10 days. active Not Available Not Available No t Available naproxen 500 mg tablet 11/27 completed Not Available Not Available Not Available amoxicillin 875 mg-potassiu m clavulanate 125 mg tablet TAKE 1 TABLET BY MOUTH EVERY 12 HOURS FOR 10 DAYS 05/17 completed Not Available Not Available Not Available Advair HFA 115 mcg-21 mcg/actuati on aerosol inhaler Inhale 2 puffs twice a day by inhalatio n route. 11/27 completed Not Available Not Available Not Available Symbicort 160 mcg-4.5 mcg/actuati on HFA aerosol inhaler Inhale 2 puffs as needed by inhalatio n route. 06/25 completed Not Available Not Available Not Available Symbicort 80 mcg-4.5 mcg/actuati on HFA aerosol inhaler Inhale 2 puffs twice a day by inhalatio n route as directed for 30 days. 11/27 completed Not Available Not Available Not Available Dulera 100 mcg-5 mcg/actuati on HFA aerosol inhaler Inhale 2 puffs twice a day by inhalatio n route. 12/16 completed Not Available Not Available Not Available Breo Ellipta 100 mcg-25 mcg/dose powder for inhalation Inhale 1 puff every day by inhalatio n route. 11/27 completed Not Available Not Available Not Available Spiriva Respimat 1.25 mcg/actuati on solution for inhalation Inhale 2 puffs every day by inhalatio n route. 11/18 completed Not Available Not Available Not Available Xochilt Inhub 100 mcg-50 mcg/dose powder for inhalation INHALE 1 PUFF BY MOUTH TWICE A DAY active Not Available Not Available No t Available Breztri Aerosphere 160 mcg-9mcg-4. 8mcg/actuat ion HFA aerosol inhaler TAKE 2 PUFFS BY MOUTH TWICE A DAY 05/17 completed Not Available Not Available Not Available Airsupra 90 mcg-80 mcg/actuati on HFA aerosol inhaler Inhale 2 inhalatio ns twice a day by inhalatio n route as needed for 30 days. active Not Available Not Available No t Available Vitals Date Recorded Body height Body mass index (BMI) Body weight Body temperature Heart rate Respiratory rate Oxygen saturation Oxygen saturation in Arterial blood by Pulse oximetry Systolic blood pressure Diastolic blood pressure Provider Name and Address Organization Details Last Updated DateTime 4 175.26 cm 37.7 kg/m2 397014. 2 g 97.9 [degF] 65 /min 20 /min 99 % 99 % 170 mm[Hg] 98 mm[Hg] Chanda Mackenzie RN [place] [facility] 4 12:07:14 Social History Question Answer Notes LastModified by Organizat ion Details LastModified Time Tobacco Smoking Status Never Smoker Not Available [facility] 08/03/2022 09:13:16 Do You Have An Advance Directive? No MIGRATION. [id number] Information not available 08/03/2022 Do You Wear A Helmet When Biking? Yes MIGRATION. Information not available 08/03/2022 What Is Your Level Of Caffeine Consumption? Moderate MIGRATION. Information not available 08/03/2022 In The 14 Days Before Symptom Onset, Have You Had Close Contact With A Laboratory-confir med COVID-19 While That Case Was Ill? No MIGRATION. Information not available 08/03/2022 In The 14 Days Before Symptom Onset, Have You Had Close Contact With A Person Who Is Under Investigation For COVID-19 While That Person Was Ill? No MIGRATION.[id number] Information not available 08/03/2022 What Type Of Diet Are You Following? REGULAR MIGRATION.81426 45570 Information not available 08/03/2022 What Is The Highest Grade Or Level Of School You Have Completed Or The Highest Degree You Have Received? [id number] MIGRATION.23592 04874 Information not available 08/03/2022 What Is Your Occupation? [employer] MIGRATION.45772 59712 Information not available 08/03/2022 Have There Been Any Changes To Your Family Or Social Situation? No MIGRATION.35060 17840 Information not available 08/03/2022 Are There Any Guns Present In Your Home? No MIGRATION.15401 40514 Information not available 08/03/2022 Do You Use Insect Repellent Routinely? Yes MIGRATION.66141 80328 Information not available 08/03/2022 Where Do You Live? [place] MIGRATION.14916 62770 Information not available 08/03/2022 Do You Have A Medical Power Of Sales Attendant? No MIGRATION.37312 13843 Information not available 08/03/2022 Do You Have Any Pets? No MIGRATION.84289 41586 Information not available 08/03/2022 What Is Your Relationship Status? MIGRATION.86004 83107 Information not available 08/03/2022 Do You Use Your Seat Belt Or Car Seat Routinely? Yes MIGRATION.72447 74868 Information not available 08/03/2022 Do You Have Smoke And Carbon Monoxide Detectors In Your Home? Yes MIGRATION.08805 96985 Information not available 08/03/2022 Are You Passively Exposed To Smoke? No MIGRATION.11450 85490 Information not available 08/03/2022 Are There Any Smokers In Your House? No MIGRATION.65760 07472 Information not available 08/03/2022 Do You Participate In Social Media? No MIGRATION.39566 94308 Information not available 08/03/2022 Do You Feel Stressed (tense, Restless, Nervous, Or Anxious, Or Unable To Sleep At Night)? [id number] MIGRATION.14935 00157 Information not available 08/03/2022 Do You Use Any Illicit Or Recreational Drugs? No MIGRATION.33285 54465 Information not available 08/03/2022 Do You Use Sunscreen Routinely? Yes MIGRATION.86991 33757 Information not available 08/03/2022 Has Tobacco Cessation Counseling Been Provided? No MIGRATION.84759 43573 Information not available 08/03/2022 Have You Recently Traveled Abroad? No MIGRATION.64690 73626 Information not available 08/03/2022 Are You Currently In School? No MIGRATION.26603 50520 Information not available 08/03/2022 Do You Have Any Dietary Restrictions? No MIGRATION.52250 15992 Information not available 08/03/2022 Do You Or Have You Ever Used Any Other Forms Of Tobacco Or Nicotine? No MIGRATION.49230 57835 Information not available 08/03/2022 Sex: Unknown Functional Status Question Answer Note LastModified by Organizat ion Details LastModified Time What is your exercise level? Occasional [id number] Information not available 08/03/2022 Mental Status None recorded. Family History Relationship Description Onset Age of this Age Resolved Age Notes LastModified by Organization Details LastModified Time Father Diabetes mellitus [id number] Not available 08/03/2022 09:13:35 Medical History Condition Response BLINDNESS N RHEUMATIC FEVER N KIDNEY STONES N BLADDER PROBLEMS N MRSA N OTHER # 1 N POLIO N LUNG DISEASE/DISORDER N HISTORY OF DRUG ABUSE N COPD N RADIATION / CHEMOTHERAPY N Other # 2 N BLOOD DISEASES N SURGERY N EAR OR HEARING PROBLEMS N MUMPS N SHINGLES N FEMALE PROBLEMS / INFECTIONS N DEPRESSION (INCLUDING POST ) N BOWEL PROBLEMS N STROKE/TIA N THYROID DISEASE N ULCERS N BENIGN PROSTATIC HYPERPLASIA N MEASLES N CERVICALGIA N HYPOTENSION N TB SKIN TEST N MYOCARDIAL INFARCTION N OBESITY Y PARAPELGIA N GERD/NAUSEA N ANEURYSM N URINARY/BLADDER/KIDNEY PROBLEMS N CORONARY ARTERY DISEASE (CAD) N MENIERE'S DISEASE N ADDICTION CONCERNS N ENDOMETRIOSIS N USE OF BLOOD THINNERS N SKIN PROBLEMS N EMPHYSEMA N GASTROINTESTINAL DISORDER N MUSCLE,JOINT OR BONE PROBLEMS N GASTROINTESTINAL BLEEDING N BLOOD CLOTS N ASTHMA Y CATARACTS N ERECTILE DYSFUNCTION N GI PROBLEMS N CHF N Low Testosterone N NEUROPATHY N INFERTILITY N AIDS/HIV N FRACTURES N CHEMOTHERAPY / RADIATION N VISION/EYE PROBLEMS N LIVER DISEASE N MALE HYPOGONADISM N HYPERTENSION Y TOURETTE'S N ANXIETY DISORDER N BLOOD TRANSFUSION N ANEMIA/BLOOD DISORDER N CHRONIC EAR INFECTIONS N BRONCHITIS N TUBERCULOSIS N GLAUCOMA N FOOT PROBLEM N DIVERTICULITIS N SLEEP APNEA N CHICKENPOX N ALLERGIES/HAYFEVER Y INFECTIOUS DISEASE N PROSTATE N HEART ARRHYTHMIA N INSOMNIA N HIGH CHOLESTEROL / HYPERLIPIDEMIA N EYE PROBLEMS N HYPERTHYROIDISM N EATING DISORDER N EDEMA N CHRONIC PAIN SYNDROME N CAROTID BLOCKAGE N CONSTIPATION N BACK / NECK PROBLEMS Y HAVE YOU BEEN HOSPITALIZED OR SEEN IN TH E ER IN THE PAST YEAR ? N ATHEROSCLEROSIS N BREAST PROBLEMS N DIALYSIS N ECZEMA N FIBROMYALGIA N OSTEOPOROSIS N ARTHRITIS Y NO SIGNIFICANT PAST MEDICAL HISTORY N APPENDICITIS N DIABETES, TYPE N BAD TEETH N HEARTBURN / REFLUX Y ADD/ADHD N AUTISM SPECTRUM DISORDER (ASD) N HEPATITIS / LIVER DISEASE N PULMONARY DISEASE N GOUT N SLEEP DISORDER N ALZHEIMER'S DISEASE N PAIN N DEMENTIA N HERPES N SEIZURES/EPILEPSY N HEADACHES/MIGRAINES N VASCULAR DISEASE N PACEMAKER N DIZZINESS N HEART DISEASE/HEART PROBLEMS N KIDNEY DISEASE N SCARLET FEVER N MULTIPLE SCLEROSIS N DEVELOPMENTAL OR BEHAVIORAL DISORDERS N MENTAL DISORDER/ILLNESS N CANCER: SPECIFY N CARDIAC ARRHYTHMIA N PNEUMONIA N ATRIAL FIBRILLATION N Gall Stones N PULMONARY EMBOLISM N AUTOIMMUNE DISEASE N Past Encounters Encounter ID Performer Location Encounter Start Date Encounter Closed Date Diagnosis/Indication Diagnosis SNOMED-CT Code Diagnosis ICD10 Code Diagnosis Note [id number] MARVEL Lance [facility] [address] [address] 05/17/2024 11:51:26 05/17/2024 12:57:36 Mild intermittent asthma 404004806 J45.20 Utilize neb daily, swapped albuterol for airsupra Essential hypertension 26780917 I10 BP uncontroll ed, patient does not check at home. Will add lisinopril and FU in 3 months Degenerati on of lumbar intervertebral disc 87540648 M51.369 Work accomodati ons note provided Adult heal th examination 616444984 Z00.00 [facility] e reviewedDi scussed diet and exercisePa tient questions answered Obesity 030107578 E66.9 Screening for malignant neoplasm of prostate 218531645 Z12.5 Screening for malignant neoplasm of colon 663842022 Z12.11 Health Concerns Section Related Observation LastModified by Organization Detai ls LastModified Time None Recorded Concern Status LastModified by Organization Details LastModified Time None Recorded Payers Encounter Date Sequence Insurance Name Policy Number Policy Woodruff Covered Member ID Woodruff Member ID Guarantor Name 05/17/2024 1 [facility] [id number] Robert Connelly Michelet [id number] Robert Tafoya Notes Date Note Type Note Provider Name and Address Organization Details Recorded Time 05/17/2024 text/html Robert Tafoya is a 63 year old male patient here today to establish care and annual wellness visit. He previously went to [facility] but did not like changing doctors so frequently. His most pressing issue is chronic back and neck pain due to osteoarthritis of the spine. He did consider surgery but does not want to do this. He does require restrictions at work for this. He does take meloxicam 15 mg as needed History of hypertension. BP on arrival 170/98. Currently taking losartan-HCTZ 50-12.5 mg and metoprolol ER 50 mg PO daily. He does have a wrist BP cuff at home but does not monitor BP at home. We will FU on this in 3 months History of mild-intermittent asthma does utilize a nebulizer daily and finds this helpful. Has albuterol inhaler that he uses occasionally. Flu shot: declinesCOVID vaccines: declinesTdap: declines, recommended if injuryPSA: ordered todayColonoscopy: cologuard orderedAnnual labs ordered today MARVEL Lance [address] [facility], [facility] [address], [place], [address], [place] [facility] 05/17/2024 12:58:25
--- OUTSIDE RECORDS SUMMARY | 2024-06-11 03:36 | XMS_ITS | Data Portability ---
Author Organization [place] [facility] [employer], Main Office Address [address] [place] [address] Assessment No assessment recorded. Plan of Treatment Reminders Order Date Submit Date Provider Last Modified By Organization Details Last Modified Time Details Appointments Follow Up 15 2024 10:30A M MARVEL Lance Not available Not available Not available Lab HbA1c (hemoglob in A1c), blood 2023 024 [email or web address] [facility], [address] , [place], [address], 05/24/2024 08:08:08 TSH, serum or plasma 2023 024 [email or web address] [facility], [address] , [place], [address], 05/24/2024 08:08:08 lipid panel, serum 2023 024 [email or web address] [facility], [address] , [place], [address], 05/24/2024 08:08:08 CMP, serum or plasma 2023 024 [email or web address] [facility], [address] , [place], [address], 05/24/2024 08:08:08 PSA, total + free, serum or plasma 2023 024 [email or web address] [facility], [address] , [place], [address], 05/24/2024 08:08:08 noninvasi ve colorecta l cancer DNA + occult blood screening , QL, stool 2023 [email or web address] [address] [facility] (Cologuard Orders Only), [address], [address], [place], [address], 05/24/2024 08:08:08 CBC w/ auto diff 2023 [email or web address] [address] [facility], [address], [place], [address], 05/24/2024 08:08:08 Referral None recorded. Procedures None recorded. Surgeries None recorded. Imaging XR, chest, 2 view 2023 [facility], [address], [place], [address], 04/02/2024 14:50:57 Medication Orders losartan 50 mg-hydroc hlorothia zide 12.5 mg tablet 2023 [email or web address] [facility]/Pharmacy #2510, [address] [place], [address], 04/02/2024 12:43:59 Medrol (Srinivasan) 4 mg tablets in a dose pack [address]/Pharmacy #2510, [address] [place], [address], 05/17/2024 12:04:15 amoxicill in 875 mg-potass ium clavulana te 125 mg tablet [address]/Pharmacy #2510, [address] [place], [address], 05/17/2024 12:02:21 meloxicam 7.5 mg tablet 2023 024 [facility]/Pharmacy #2510, [address] [place], [address], 05/17/2024 12:44:40 metoprolo l succinate ER 50 mg tablet,ex tended release 24 hr 12/13/ 2024 12/13/2 024 [facility] [address] [place], [address], 05/17/2024 12:44:40 losartan 50 mg-hydroc hlorothia zide 12.5 mg tablet 2023 024 [facility] [address] [place], [address], 05/17/2024 12:44:39 albuterol sulfate 2.5 mg/3 mL (0.083 %) solution for nebulizat ion 2023 024 [facility] [address] [place], [address], 05/17/2024 12:44:41 Airsupra 90 mcg-80 mcg/actua tion HFA aerosol inhaler 2023 024 [facility] [address] [place], [address], 05/17/2024 12:44:40 Patient TargetsNo targets recorded. Patient InstructionsNo instructions recorded. Reason for Referral None Reported. Results Created Date Observation Date Name Description Value Unit Range Abnormal Flag Note LastModifiedBy Organization Detail LastModifiedTime 04/24/20 22 04/24/2022 imagi ng/di agnos tic resul t No observ ation record ed. [id number], [address], 08/03/2022 09:28:05 04/24/20 22 04/24/2022 imagi ng/di agnos tic resul t No observ ation record ed. MIGRATION.[id number], [address], 08/03/2022 09:28:05 04/24/20 22 04/24/2022 XR, chest , 2 view No observ ation record ed. MIGRATION.[id number] [place] [address] [address] [facility], [place], [address], 08/03/2022 09:28:05 04/25/20 22 04/25/2022 imagi ng/di agnos tic resul t No observ ation record ed. MIGRATION.[address] [place] [address], [place], [address], 08/03/2022 09:28:05 04/25/20 22 04/25/2022 imagi ng/di agnos tic resul t No observ ation record ed. MIGRATION.[address]35[address] [place] [address], [place], [address], 08/03/2022 09:28:05 04/25/20 22 04/25/2022 imagi ng/di agnos tic resul t No observ ation record ed. MIGRATION.[address] [place] [address], [place], [address], 08/03/2022 09:28:05 04/25/20 22 04/25/2022 imagi ng/di agnos tic resul t No observ ation record ed. MIGRATION.8083294 [place] [address], [place], [address], 08/03/2022 09:28:05 05/04/20 22 05/04/2022 XR, lumba r spine No observ ation record ed. MIGRATION.[address]22[address] [place] [address], [place], [address], 08/03/2022 09:28:05 05/15/20 22 05/15/2022 XR, chest , 2 view No observ ation record ed. MIGRATION.[address] [place] [address], [place], [address], 08/03/2022 09:28:05 05/15/20 22 05/15/2022 imagi ng/di agnos tic resul t No observ ation record ed. MIGRATION.[address] [place] [address], [place], [address], 08/03/2022 09:28:05 03/03/20 23 03/03/2023 CT, abdom en + pelvi s, w/ contr ast No observ ation record ed. [email or web address] [address], [place], [address], 10/13/2023 10:13:30 04/02/20 24 04/02/2024 XR, chest , 2 view No observ ation record ed. [email or web address] [address], [place], [address], 04/02/2024 16:01:08 04/02/20 24 04/02/2024 XR, chest , 2 view No observ ation record ed. [email or web address] [address], [place], [address], 04/02/2024 16:47:33 Result Notes None recorded. Problems Name Problem SNOMED Code Status Onset Date Resolution Date Notes Provider Name and Address Organization Details Recorded Time Asthma 180739408 Active Not Available [facility] 3 09:20:00 Dyspnea 015037102 Active Not Available [facility] 3 09:20:00 Low back pain 517275198 Active Not Available [facility] 3 09:20:01 Bronchitis 69134795 Active Not Available [facility] 3 09:20:01 Exacerbation of intermittent asthma 365224526 Active 2022 MARVEL Eason [address], [place] [address], [place], [address] , [facility] [employer] 3 17:41:16 Upper respiratory infection 18445000 Active 2023 BLAZE Negro [address], [facility] [address], [place], [address] , [employer] 4 12:21:11 Essential hypertension 47517663 Active 2023 Julito Davidson, [employer] [address], [address], [place], [address] , [place] [facility] 4 12:32:37 Mild intermittent asthma 950152208 Active 2023 MARVEL Lance [address], [address], [place], [address] , [place] [facility] 4 12:28:50 Degeneration of lumbar intervertebra l disc 82673273 Active 2023 MARVEL Lance [address], [address], [place], [address] , [place] [facility] 4 12:40:26 Obesity 495889533 Active 2023 MARVEL Lance [address], [address], [place], [address] , [place] [facility] [facility] 4 12:43:10 Disorder of prostate 46876495 Active 2023 MARVEL Lance [address], [address], [place], [address] , [employer] [facility] 4 12:43:38 Problem Notes None recorded. Procedures Surgical History None recorded. Imaging Results Imaging Date Name Status LastModified by Organiz ation Details LastModified Time 05/15/2022 XR, chest, 2 view completed MIGRATION.[id number] [address] [place] [address], [address], 08/03/2022 09:28:05 05/04/2022 XR, lumbar spine completed MIGRATION.[id number] [address] [place] [address], [address], 08/03/2022 09:28:05 05/15/2022 imaging/diagn ostic result completed MIGRATION.[id number] [address] [place] [address] [place] [address], [address], 08/03/2022 09:28:05 04/24/2022 imaging/diagn ostic result completed MIGRATION.[id number] [address] [place] [place] [address] [address], [place], [address], 08/03/2022 09:28:05 04/25/2022 imaging/diagn ostic result completed MIGRATION.[id number] [address] [place] [place] [address] [address], [place], [address], 08/03/2022 09:28:05 04/24/2022 imaging/diagn ostic result completed MIGRATION.[id number] [address] [place] [place] [address] [address], [place], [address], 08/03/2022 09:28:05 04/25/2022 imaging/diagn ostic result completed MIGRATION.[id number] [address] [place] [place] [address] [address], [place], [address], 08/03/2022 09:28:05 04/25/2022 imaging/diagn ostic result completed MIGRATION.[id number] [address] [place] [place] [address] [address], [place], [address], 08/03/2022 09:28:05 04/24/2022 XR, chest, 2 view completed MIGRATION.[id number] [address] [place] [place] [address] [address], [place], [address], 08/03/2022 09:28:05 04/25/2022 imaging/diagn ostic result completed MIGRATION.[id number] [address] [place] [place] [address] [address], [place], [address], 08/03/2022 09:28:05 03/03/2023 CT, abdomen + pelvis, w/ contrast completed [email or web address] [address], [place], [address], 10/13/2023 10:13:30 04/02/2024 XR, chest, 2 view completed [email or web address] [address], [place], [address], 04/02/2024 16:01:08 04/02/2024 XR, chest, 2 view completed [email or web address] [place] [address] [address], [place], [address], 04/02/2024 16:47:33 Procedure Notes None recorded. Medical Equipment None Reported. [...] completed Not Available Not Available Not Available [employer] Inhub 100 mcg-50 mcg/dose powder for inhalation [...] No t Available Vitals Date Recorded Body mass index (BMI) Body height Oxygen saturation Oxygen saturation in Arterial blood by Pulse oximetry Heart rate Body temperature Body weight Systolic blood pressure Diastolic blood pressure Provider Name and Address Organization Details Last Updated DateTime 2 34.6 kg/m2 175.26 cm 98 % 98 % 70 /min 97 [degF] 372947. 61 g 136 mm[Hg] 72 mm[Hg] Not Available [facility] 3 09:16:18 Date Recorded Body mass index (BMI) Body height Oxygen saturation Oxygen saturation in Arterial blood by Pulse oximetry Heart rate Body temperature Body weight Systolic blood pressure Diastolic blood pressure Provider Name and Address Organization Details Last Updated DateTime 2 36.6 kg/m2 175.26 cm 97 % 97 % 66 /min 98.3 [degF] 368718. 91 g 184 mm[Hg] 118 mm[Hg] Not Available [facility] 3 09:16:18 Date Recorded Body height Provider Name an d Address Organization Details Last Updated DateTime 05/10/2022 175.26 cm Not Available [facility] 3 09:16:20 Date Recorded Body weight Body mass index (BMI) Body height Body temperature Heart rate Oxygen saturation Oxygen saturation in Arterial blood by Pulse oximetry Systolic blood pressure Diastolic blood pressure Provider Name and Address Organization Details Last Updated DateTime 4 884395. 09 g 36.9 kg/m2 175.26 cm 98.3 [degF] 94 /min 97 % 97 % 160 mm[Hg] 94 mm[Hg] Angelita Chaudhry RN [place] [facility] [place] [employer] [facility] 4 12:17:04 Date Recorded Body height Body mass index (BMI) Body weight Body temperature Heart rate Respiratory rate Oxygen saturation Oxygen saturation in Arterial blood by Pulse oximetry Systolic blood pressure Diastolic blood pressure Provider Name and Address Organization Details Last Updated DateTime 4 175.26 cm 37.7 kg/m2 008270. 2 g 97.9 [degF] 65 /min 20 /min 99 % 99 % 170 mm[Hg] 98 mm[Hg] Chanda Mackenzie RN [place] [facility] 4 12:07:14 Date Recorded Systolic blood pressure Diastolic blood pressure Provider Name and Address Organization Details Last Updated DateTime 05/03/2022 170 mm[Hg] 110 mm[Hg] Not Available [facility] 08/03/2022 09:16:18 Social History Question Answer Notes LastModified by Organizat ion Details LastModified Time Tobacco Smoking Status Never Smoker Not Available [facility] 08/03/2022 09:13:16 Do You Have An Advance Directive? No MIGRATION.00053 69394 Information not available 08/03/2022 Do You Wear A Helmet When Biking? Yes MIGRATION.50831 97862 Information not available 08/03/2022 What Is Your Level Of Caffeine Consumption? Moderate MIGRATION.78781 55000 Information not available 08/03/2022 In The 14 Days Before Symptom Onset, Have You Had Close Contact With A Laboratory-confir med COVID-19 While That Case Was Ill? No MIGRATION.73180 43275 Information not available 08/03/2022 In The 14 Days Before Symptom Onset, Have You Had Close Contact With A Person Who Is Under Investigation For COVID-19 While That Person Was Ill? No MIGRATION.76310 14929 Information not available 08/03/2022 What Type Of Diet Are You Following? REGULAR MIGRATION.25791 47630 Information not available 08/03/2022 What Is The Highest Grade Or Level Of School You Have Completed Or The Highest Degree You Have Received? [id number] MIGRATION.58055 78625 Information not available 08/03/2022 What Is Your Occupation? [employer] MIGRATION.31593 33062 Information not available 08/03/2022 Have There Been Any Changes To Your Family Or Social Situation? No MIGRATION.53672 21660 Information not available 08/03/2022 Are There Any Guns Present In Your Home? No MIGRATION.64316 49255 Information not available 08/03/2022 Do You Use Insect Repellent Routinely? Yes MIGRATION.49054 42420 Information not available 08/03/2022 Where Do You Live? [place] MIGRATION.38369 [address]3245 Information not available 08/03/2022 Do You Have A Medical Power Of [employer] Bi Consultant? No MIGRATION.21702 37108 Information not available 08/03/2022 Do You Have Any Pets? No MIGRATION.94656 09132 Information not available 08/03/2022 What Is Your Relationship Status? MIGRATION.06410 49505 Information not available 08/03/2022 Do You Use Your Seat Belt Or Car Seat Routinely? Yes MIGRATION.13611 76798 Information not available 08/03/2022 Do You Have Smoke And Carbon Monoxide Detectors In Your Home? Yes MIGRATION.27673 29749 Information not available 08/03/2022 Are You Passively Exposed To Smoke? No MIGRATION.58563 14189 Information not available 08/03/2022 Are There Any Smokers In Your House? No MIGRATION.19815 55150 Information not available 08/03/2022 Do You Participate In Social Media? No MIGRATION.83762 65698 Information not available 08/03/2022 Do You Feel Stressed (tense, Restless, Nervous, Or Anxious, Or Unable To Sleep At Night)? [id number] MIGRATION.82727 84729 Information not available 08/03/2022 Do You Use Any Illicit Or Recreational Drugs? No MIGRATION.98254 22019 Information not available 08/03/2022 Do You Use Sunscreen Routinely? Yes MIGRATION.54424 91576 Information not available 08/03/2022 Has Tobacco Cessation Counseling Been Provided? No MIGRATION.43778 32978 Information not available 08/03/2022 Have You Recently Traveled Abroad? No MIGRATION.22509 32228 Information not available 08/03/2022 Are You Currently In School? No MIGRATION.47991 89954 Information not available 08/03/2022 Do You Have Any Dietary Restrictions? No MIGRATION.78979 26312 Information not available 08/03/2022 Do You Or Have You Ever Used Any Other Forms Of Tobacco Or Nicotine? No MIGRATION.29552 95514 Information not available 08/03/2022 Sex: Unknown Functional Status Question Answer Note LastModified by Organizat ion Details LastModified Time What is your exercise level? Occasional MIGRATION.[id number] 26 Information not available 08/03/2022 Mental Status None recorded. Family History Relationship Description Onset Age of this Age Resolved Age Notes LastModified by Organization Details LastModified Time Father Diabetes mellitus MIGRATION.236 [id number] Not available 08/03/2022 09:13:35 Medical History Condition [...] HAVE YOU BEEN HOSPITALIZED OR SEEN IN [facility] IN THE PAST YEAR ? N ATHEROSCLEROSIS [...] SNOMED-CT Code Diagnosis ICD10 Code Diagnosis Note [id number] [facility] [place] [facility] [address] [place] [address] 01/13/2021 00:00:00 01/13/2021 17:34:17 [id number] [facility] [place] [address] [place] [address] 06/11/2021 00:00:00 06/11/2021 10:15:43 [id number] [facility] [place] [address] [place] [address] 07/15/2021 00:00:00 07/15/2021 12:16:35 [id number] [facility] [place] [address] [place] [address] 10/12/2021 00:00:00 11/02/2021 09:06:30 [id number] [facility] [place] [address] [place] [address] 04/11/2022 00:00:00 04/11/2022 11:49:06 [id number] [facility] [place] [address] [place] [address] 05/03/2022 00:00:00 05/03/2022 11:29:10 [id number] [facility] [place] [address] [place] [address] 05/10/2022 00:00:00 05/11/2022 08:58:31 [id number] BLAZE Negro [facility] [place] [address] [place] [address] 04/02/2024 11:48:52 04/02/2024 12:36:59 Upper respiratory infection 24671689 J06.9 f/u in the UC, no cxr performedz srinivasan and steroids giventight chest pains at time, does breathing treatments through the day, cough dropswhite sputumxray orderedmed rol dose srinivasan Essential hypertension 27131431 I10 only takes half of the losartan hctz 100mg/25mg , splits in half unevenlytr ial losartan 50mg -12.5 [id number] MARVEL Lance [facility] [address] [address] 05/17/2024 11:51:26 05/17/2024 12:57:36 Mild intermittent asthma 574821822 J45.20 Utilize neb daily, swapped albuterol for airsupra Essential hypertension 47091394 I10 BP uncontroll ed, patient does not check at home. Will add lisinopril and FU in 3 months Degenerati on of lumbar intervertebral disc 29838808 M51.369 Work accomodati ons note provided Adult heal th examination 644841940 Z00.00 [facility] Benoit scussed diet and exercisePa tient questions answered Obesity 340983351 E66.9 Screening for malignant neoplasm of prostate 561464788 Z12.5 Screening for malignant neoplasm of colon 786469777 Z12.11 Health Concerns Section Related Observation LastModified by Organization Detai ls LastModified Time None Recorded Concern Status LastModified by Organization Details LastModified Time None Recorded Advance Directives Directive N: Payers Encounter Date Sequence Insurance Name Policy Number Policy Woodruff Covered Member ID Woodruff Member ID Guarantor Name 04/02/2024 1 [facility] [id number] Robert Tafoya [id number] Robert Tafoya 05/17/2024 1 [facility] [id number] Robert Connelly Michelet [id number] Robert Tafoya Notes Date Note Type Note Provider Name and Address Organization Details Recorded Time 04/02/2024 text/html pt is here for m ed f/u MARVEL Negro-Parag [address] [facility], [facility] [address], [place], [address], [facility] 04/02/2024 12:47:36 05/17/2024 text/html Robert Tafoya is a 63 year old male patient here today to establish care and annual wellness visit. He previously went to [facility] but did not like changing doctors so [...] orderedAnnual labs ordered today MARVEL Lance [address] [facility], [facility] [address], [place], [address], [place] [facility] 05/17/2024 12:58:25
--- OUTSIDE RECORDS SUMMARY | 2024-06-11 03:36 | XMS_ITS | Continuity of Care Document ---
Author Organization [place] [facility] [employer] [facility], [facility] [place] Address [address] [place] [address] Assessment No assessment recorded. Plan of Treatment Reminders Order Date Submit Date Provider Last Modified By Organization Details Last Modified Time Details Appointments Follow Up 15 2024 10:30A M MARVEL Lance Not available Not available Not available Lab None recorded. Referral None recorded. Procedures None recorded. Surgeries None recorded. Imaging XR, chest, 2 view 2023 [facility], [address] [place] [address], [address], 04/02/2024 14:50:57 Medication Orders losartan 50 mg-hydroc hlorothia zide 12.5 mg tablet 2023 [email or web address] [id number], [address] [place], [address], 04/02/2024 12:43:59 Medrol (Srinivasan) 4 mg tablets in a dose pack 2023 [email or web address] [id number], [address] [place], [address], 05/17/2024 12:04:15 amoxicill in 875 mg-potass ium clavulana te 125 mg tablet 2023 [email or web address] [id number], [address] [place], [address], 05/17/2024 12:02:21 Patient TargetsNo targets recorded. Patient InstructionsNo instructions recorded. Reason for Referral None Reported. Results Created Date Observation Date Name Description Value Unit Range Abnormal Flag Note LastModifiedBy Organization Detail LastModifiedTime 04/02/20 24 04/02/2024 XR, chest , 2 view No observ ation record ed. [email or web address] [facility] [address], [place], [address], 04/02/2024 16:01:08 04/02/20 24 04/02/2024 XR, chest , 2 view No observ ation record ed. [email or web address] [facility] [address], [place], [address], 04/02/2024 16:47:33 Result Notes None recorded. Problems Name Problem SNOMED Code Status Onset Date Resolution Date Notes Provider Name and Address Organization Details Recorded Time Asthma 301652746 Active Not Available [facility] 09:20:00 Dyspnea 026307161 Active Not Available [facility] 3 09:20:00 Low back pain 776452641 Active Not Available [facility] 09:20:01 Bronchitis 97673114 Active Not Available [facility] 09:20:01 Exacerbation of intermittent asthma 115598594 Active 2022 MARVEL Eason [address], [place], [address] , [employer] 3 17:41:16 Upper respiratory infection 77534172 Active 2023 BLAZE Negro [address], [place], [address] , [employer] 4 12:21:11 Essential hypertension 40642150 Active 2023 BLAZE Negro [address], [address], [place], [address] , [employer] 4 12:32:37 Mild intermittent asthma 292633497 Active 2023 MARVEL Lance [address], [place], [address] , [employer] 4 12:28:50 Degeneration of lumbar intervertebra l disc 60104177 Active 2023 Valerie Curry [employer] [address], [place], [address] , [employer] 4 12:40:26 Obesity 862295201 Active 2023 Valerie RussoPRINCE [email or web address] [address], [place], [address] , [employer] 4 12:43:10 Disorder of prostate 43042607 Active 2023 Valerie Russopilar [employer] [address], [place], [address] , [employer] 4 12:43:38 Problem Notes None recorded. Medical [...] No t Available Vitals Date Recorded Body weight Body mass index (BMI) Body height Body temperature Heart rate Oxygen saturation Oxygen saturation in Arterial blood by Pulse oximetry Systolic blood pressure Diastolic blood pressure Provider Name and Address Organization Details Last Updated DateTime 4 436183. 09 g 36.9 kg/m2 175.26 cm 98.3 [degF] 94 /min 97 % 97 % 160 mm[Hg] 94 mm[Hg] Angelita Chaudhry RN [place] [facility] 4 12:17:04 Social History Question Answer Notes LastModified by Organizat ion Details LastModified Time Tobacco Smoking Status Never Smoker Not Available [employer] 08/03/2022 09:13:16 Do You Have An Advance Directive? No MIGRATION.72023 [id number] Information not available 08/03/2022 Do You Wear A Helmet When Biking? Yes MIGRATION.33915 [id number] Information not available 08/03/2022 What Is Your Level Of Caffeine Consumption? Moderate MIGRATION.61291 91432 Information not available 08/03/2022 In The 14 Days Before Symptom Onset, Have You Had Close Contact With A Laboratory-confir med COVID-19 While That Case Was Ill? No MIGRATION.35021 72418 Information not available 08/03/2022 In The 14 Days Before Symptom Onset, Have You Had Close Contact With A Person Who Is Under Investigation For COVID-19 While That Person Was Ill? No MIGRATION.78681 17972 Information not available 08/03/2022 What Type Of Diet Are You Following? REGULAR MIGRATION.84108 72489 Information not available 08/03/2022 What Is The Highest Grade Or Level Of School You Have Completed Or The Highest Degree You Have Received? [id number] MIGRATION.58285 95930 Information not available 08/03/2022 What Is Your Occupation? [employer] MIGRATION.05000 88573 Information not available 08/03/2022 Have There Been Any Changes To Your Family Or Social Situation? No MIGRATION.91215 44181 Information not available 08/03/2022 Are There Any Guns Present In Your Home? No MIGRATION.59267 91817 Information not available 08/03/2022 Do You Use Insect Repellent Routinely? Yes MIGRATION.43480 29490 Information not available 08/03/2022 Where Do You Live? [place] MIGRATION.74907 00740 Information not available 08/03/2022 Do You Have A Medical Power Of Hotel Services Sales Representative? No MIGRATION.89164 80355 Information not available 08/03/2022 Do You Have Any Pets? No MIGRATION.48878 90026 Information not available 08/03/2022 What Is Your Relationship Status? MIGRATION.65891 61029 Information not available 08/03/2022 Do You Use Your Seat Belt Or Car Seat Routinely? Yes MIGRATION.65516 57956 Information not available 08/03/2022 Do You Have Smoke And Carbon Monoxide Detectors In Your Home? Yes MIGRATION.06849 90527 Information not available 08/03/2022 Are You Passively Exposed To Smoke? No MIGRATION.09562 18190 Information not available 08/03/2022 Are There Any Smokers In Your House? No MIGRATION.80905 63514 Information not available 08/03/2022 Do You Participate In Social Media? No MIGRATION.25341 44676 Information not available 08/03/2022 Do You Feel Stressed (tense, Restless, Nervous, Or Anxious, Or Unable To Sleep At Night)? CQ8500-2 MIGRATION.66620 36220 Information not available 08/03/2022 Do You Use Any Illicit Or Recreational Drugs? No MIGRATION.70449 31892 Information not available 08/03/2022 Do You Use Sunscreen Routinely? Yes MIGRATION.94874 57778 Information not available 08/03/2022 Has Tobacco Cessation Counseling Been Provided? No MIGRATION.00298 38192 Information not available 08/03/2022 Have You Recently Traveled Abroad? No MIGRATION.95508 42183 Information not available 08/03/2022 Are You Currently In School? No MIGRATION.77654 32381 Information not available 08/03/2022 Do You Have Any Dietary Restrictions? No MIGRATION.41660 21801 Information not available 08/03/2022 Do You Or Have You Ever Used Any Other Forms Of Tobacco Or Nicotine? No MIGRATION.81912 48337 Information not available 08/03/2022 Sex: Unknown Functional Status Question Answer Note LastModified by [employer] ion Details LastModified Time What is your exercise level? Occasional [id number] Information not available 08/03/2022 Mental Status None recorded. Family History Relationship Description Onset Age of this Age Resolved Age Notes LastModified by Organization Details LastModified Time Father Diabetes mellitus [id number] Not available 08/03/2022 09:13:35 Medical History Condition [...] GLAUCOMA N FOOT PROBLEM N DIVERTICULITIS N CHICKENPOX N SLEEP APNEA N ALLERGIES/HAYFEVER Y INFECTIOUS DISEASE N HEART ARRHYTHMIA N PROSTATE N INSOMNIA N HIGH CHOLESTEROL / HYPERLIPIDEMIA N EYE PROBLEMS N HYPERTHYROIDISM N EATING DISORDER N EDEMA N CHRONIC PAIN SYNDROME N CAROTID BLOCKAGE N CONSTIPATION N BACK / NECK PROBLEMS Y HAVE YOU BEEN HOSPITALIZED OR SEEN IN [facility] IN THE PAST YEAR ? N [...] DISORDER N ALZHEIMER'S DISEASE N PAIN N HERPES N DEMENTIA N SEIZURES/EPILEPSY N HEADACHES/MIGRAINES N VASCULAR DISEASE N PACEMAKER N DIZZINESS N KIDNEY DISEASE N HEART DISEASE/HEART PROBLEMS N SCARLET FEVER N MULTIPLE SCLEROSIS N MENTAL DISORDER/ILLNESS N DEVELOPMENTAL OR BEHAVIORAL DISORDERS N CARDIAC ARRHYTHMIA N CANCER: SPECIFY N PNEUMONIA N Gall Stones N ATRIAL FIBRILLATION N PULMONARY EMBOLISM N AUTOIMMUNE DISEASE N Past Encounters Encounter ID Performer Location Encounter Start Date Encounter Closed Date Diagnosis/Indication Diagnosis SNOMED-CT Code Diagnosis ICD10 Code Diagnosis Note [id number] BLAZE Negro [facility] [address] [place] [address] 04/02/2024 11:48:52 04/02/2024 12:36:59 Upper respiratory infection 09890866 J06.9 f/u in the UC, no cxr performedz srinivasan and steroids giventight chest pains at time, does breathing treatments through the day, cough dropswhite sputumxray orderedmed rol dose srinivasan Essential hypertension 63985214 I10 only takes half of the losartan hctz 100mg/25mg , splits in half unevenlytr ial losartan 50mg -12.5 Health Concerns Section Related Observation LastModified by Organization Detai ls LastModified Time None Recorded Concern Status LastModified by Organization Details LastModified Time None Recorded Payers Encounter Date Sequence Insurance Name Policy Number Policy Woodruff Covered Member ID Woodruff Member ID Guarantor Name 04/02/2024 1 [facility] [id number] Robert Tafoya [id number] Robert Tafoya Notes Date Note Type Note Provider Name and Address Organization Details Recorded Time 04/02/2024 text/html pt is here for med f/u BLAZE Negro [address] [facility] [facility] [address], [place], [address], [place] [facility] 04/02/2024 12:47:36
== END 2024-06-04 06:18 | disposition left against medical advice (07) ==
LOC: ANHED 06-04 06:15
PROVIDERS: PCP Family Medicine
DX: I10 Essential (primary) hypertension (principal)
CPT/HCPCS: 99199

== ENCOUNTER 2024-08-17 11:48 | Emergency (ER) | payer OTHER, SELFPAY ==
[2024-08-17 11:55] VITALS: BP 158/89; PULSE 62; RESP 19; TEMP 36.5; O2SAT 97
--- NOTE | 2024-08-17 12:11 | ED_ITS ---
HPI - Skin/Abscess/Foreign Bdy General Chief complaint: Skin/Abscess/Foreign Body Stated complaint: Insect Bite Time Seen by Provider: 08/17/24 12:11 Source: patient Mode of arrival: ambulatory Limitations: no limitations History of Present Illness HPI narrative: 64 yo M presents with insect bite to R abdominal wall. i think i was bit by spider . Symptoms for 3 days. Redness getting progressively worse. Afebrile. Feeling nausated today. All systems reviewed and negative except as noted above. Related Data Home Medications ?Medication ?Instructions ?Recorded ?Confirmed ?Last Taken ?Type acetaminophen 500 mg tablet 1,000 mg PO Q6H PRN Mild Pain 04/24/22 03/16/24 04/23/22 History (Tylenol Extra Strength) (Scale Score 1-4) albuterol sulfate 90 mcg/actuation 2 puff inhalation Q4-6H PRN 04/24/22 03/16/24 04/24/22 History aerosol inhaler Shortness Of Breath budesonide 160 mcg-glycopyr 9 2 inh inhalation BID 04/24/22 03/16/24 04/24/22 History mcg-formot 4.8 mcg/actuation HFA inhaler (Breztri Aerosphere) prednisone 20 mg tablet mg 05/15/22 Unknown History losartan 50 mg-hydrochlorothiazide tablet 08/17/24 Unknown History 12.5 mg tablet meloxicam 7.5 mg tablet mg 08/17/24 Unknown History Allergies Allergy/AdvReac Type Severity Reaction Status Date / Time Cat Dander Allergy Intermediate RESPIRATORY Uncoded 08/17/24 12:04 Chicken Feathers Allergy Intermediate RESPIRATORY Uncoded 08/17/24 12:04 pet dander Allergy Mild Unknown Uncoded 08/17/24 12:04 Review of Systems Review of Systems: CONSTITUTIONAL: Denies fever, chills, or sweats. EYES: Denies visual changes, redness, or discharge. ENT: Denies rhinorrhea, congestion, sore throat, or otalgia. CARDIOVASCULAR: Denies chest pain, palpitations, or edema. RESPIRATORY: Denies cough or dyspnea. GASTROINTESTINAL: Denies abdominal pain, nausea, vomiting, or diarrhea. GENITOURINARY: Denies dysuria or hematuria. SKIN: Denies rash or itching. Reports redness, itching, swelling and pain to right abdominal wall. MUSCULOSKELETAL: Denies back pain, joint pain, or myalgia. NEUROLOGIC: Denies headache, numbness, or weakness. PSYCHIATRIC: Denies anxiety or depression. All other systems reviewed are negative, except as documented in HPI. [facility] Past Medical History Medical History COVID-19 virus infection Obesity Sciatica Surgical History Surgical History No pertinent past surgical history Family History Family History Father Hypertension Mother Dementia Social History Social History Social History: The patient lives home alone and is . He works at a [employer] on a [employer]. He has 3 children. Patient stated he had been drinking heavily for while but has not drank any alcohol in 1 week. He is a former smoker. He does not use any illicit drugs. He does not have anybody that is a durable power ip attorney for healthcare. -code status full code Smoking packs per day: 2 Smoking cigarettes per day: 40.0 Years smoked: 30 Smoking pack-years: 60.00 Smoking status: Former smoker Tobacco type: cigarettes Alcohol intake: current Drinks per week: 18 Substance use: current Substance use type: marijuana Last use: 04/23/22 Lack of Transportation: No Lack of Food: Never True Current Housing: I Do Not Have Housing Concerned About Future Housing: No Difficulty Paying Gas/Electric Bills: No Difficulty Paying for Meds: No Currently Unemployed: No Education: Grade School Difficulty w/ Childcare or Family Care: No Gender identity (if verbalized by the patient): Male Spiritual care concerns: No Comments At time of signature, agree with nursing past medical, surgical, social and family history. There is no relevant family history pertinent to the presenting complaint. Exam Narrative: GENERAL: This is a well-nourished, well-developed patient, in no apparent distress. HEAD: normocephalic, atraumatic. EYES: PERRL. Sclera clear/white. Vision is grossly intact. EARS: External ears normal NOSE: External nose normal NECK: Neck supple, non-tender without lymphadenopathy, masses or thyromegaly. CARDIOVASCULAR: Regular rate and rhythm without murmurs, gallops, or rubs. RESPIRATORY: Clear to auscultation. Breath sounds equal bilaterally. No wheezes, rales, or rhonchi. SKIN: warm, Dry, intact with no suspicious lesions or rash, good texture and turgor. erythema approx. 22 x 10cm. warm to touch. no fluctuance concerning for abscess. to center there is bruising. no necrosis. NEURO: awake, alert, and oriented to person, place and time. There were no obvious focal neurologic abnormalities. EXTREMITIES: No joint tenderness, effusion, or edema noted. Course Course Level of Care: Express Care Visit Vital Signs Vital signs: Vital Signs Temperature 36.5 C 08/17/24 11:55 Pulse Rate 62 08/17/24 11:55 Respiratory Rate 19 08/17/24 11:55 Blood Pressure 158/89 H 08/17/24 11:55 Pulse Oximetry 97 08/17/24 11:55 Oxygen Delivery Room Air 08/17/24 11:55 Temperature 36.5 C 08/17/24 11:55 Pulse Rate 62 08/17/24 11:55 Respiratory Rate 19 08/17/24 11:55 Blood Pressure 158/89 H 08/17/24 11:55 Pulse Oximetry 97 08/17/24 11:55 Oxygen Delivery Room Air 08/17/24 11:55 Reviewed MDM - Skin/Abscess/Foreign Bdy MDM Narrative Medical decision making narrative: patient is well-appearing, nontoxic. Will treat with antibiotics for possible spider bite. Please be advised this is a medical document. It is intended for fmul-ks-meli communication. It is written in medical language and may contain unfamiliar abbreviations or verbiage. Medical documents are intended to carry relevant information, facts as evident, and the clinical opinion of the practitioner at the time of the encounter. This report may have been done utilizing a voice recognition system. Attempts have been made to correct errors. However, there may be uncorrected grammatical, spelling, and recognition errors present. The file time of this note does not necessarily represent the time of service. Discharge Plan Discharge Clinical Impression: Infected insect bite of abdominal wall Patient Disposition: Home, Self-Care Condition: Stable Instructions: Antibiotic Form, Insect Bite or Sting (ED) Additional Instructions: take medications as prescribed. Take ibuprofen or Tylenol every 6-8 hours as needed for pain. Follow-up with primary care physician if not improving. For any worsening of symptoms go to the ER. Patient Language: Georgian Prescriptions: New doxycycline hyclate 100 mg capsule 100 mg PO BID 7 Days Qty: 14 0RF methylprednisolone [Medrol (Srinivasan)] 4 mg tablets,dose pack See Rx Instructions PO .COMPLEX Qty: 21 0RF Rx Instructions: orally per package directions triamcinolone acetonide 0.1 % cream 1 applic topical BID PRN (Reason: insect bite) Qty: 30 0RF No Action azithromycin [Zithromax Z-Srinivasan] 250 mg tablet See Rx Instructions .ROUTE .COMPLEX Qty: 6 0RF Rx Instructions: take 500 mg today (day 1), then 250 mg for 4 days (days 2-5) methylprednisolone [Medrol (Srinivasan)] 4 mg tablets,dose pack See Rx Instructions .ROUTE .COMPLEX Qty: 21 0RF Rx Instructions: orally per package directions meloxicam 7.5 mg tablet losartan-hydrochlorothiazide 50-12.5 mg tablet albuterol sulfate 90 mcg/actuation HFA aerosol inhaler 2 puff INHALATION Q4-6H PRN (Reason: Shortness Of Breath) Breztri Aerosphere 160-9-4.8 mcg/actuation HFA aerosol inhaler 2 inh INHALATION BID acetaminophen [Tylenol Extra Strength] 500 mg Tablet 1,000 mg PO Q6H PRN (Reason: Mild Pain (Scale Score 1-4)) metoprolol tartrate 50 mg Tablet 25 mg PO Q12HR Qty: 30 0RF losartan [Cozaar] 25 mg tablet 25 mg PO DAILY Qty: 30 0RF prednisone 20 mg tablet pantoprazole [Protonix] 40 mg tablet,delayed release (DR/EC) 40 mg PO HS Qty: 14 0RF Follow-up/Referrals: Tramaine Valdivia MD [Primary Care Provider] - Time of Disposition: 12:18
== END 2024-08-17 12:25 | disposition home or self-care (01) ==
PROVIDERS: Emergency Provider Nurse Practitioner Family; PCP Family Medicine
DX: S30.861A Insect bite (nonvenomous) of abdominal wall, initial encounter (principal); L08.9 Local infection of the skin and subcutaneous tissue, unspecified; W57.XXXA Bitten or stung by nonvenomous insect and other nonvenomous arthropods, initial encounter; Z87.891 Personal history of nicotine dependence; E66.9 Obesity, unspecified; Z68.35 Body mass index [BMI] 35.0-35.9, adult; Z86.16 Personal history of COVID-19
CPT/HCPCS: 99213; G0463